=== PATIENT | female | born 1980 | race Caucasian/White ===

== ENCOUNTER 2024-12-24 13:01 | Emergency (ER) | payer OTHER, SELFPAY ==
--- OUTSIDE RECORDS SUMMARY | 2024-12-24 13:02 | XMS_ITS | Encounter Summary ---
Author Organization [place] Address [address] [facility] [place] [address] Care Team Providers Care Lathe Spotter Name Role Phone [facility] Primary Care Provider Christina Woodard APRN TIMING ADJUSTER Unavailable Reason for Visit * Reason Onset Date Comments MyChart Communication 01/21/2022 Encounter Details Date Type Department Care Team (Latest Contact Info) Description 01/21/2022 MyC Medical Advice [facility] [address] [facility] 100 [place] [address] Christina Woodard APRN TIMING ADJUSTER [address] [facility] [address] [place], [place] [id number] MyChart Communication Social History Tobacco Use Types Packs/Day Years Used Date Smoking Tobacco: Never Smokeless Tobacco: Never Alcohol Use Standard Drinks/Week Comments Yes 0 (1 standard drink = 0.6 oz pur e alcohol) Ocass PHQ-2 Answer Date Recorded PHQ-2 Score 0 07/18/2021 Comments No Sex and Gender Information Value Date Recorded Sex Assigned at Not on file Legal Sex Female 4:21 AM HOGSHEAD SALVAGE Gender Identity Not on file Sexual Orientation Not on file COVID-19 Exposure Response Date Recorded In the last month, have you been in contact with someone who was confirmed or suspected to have Coronavirus / COVID-19? No / Unsure 01/24/2022 8:00 AM HOGSHEAD SALVAGE documented as of this encounter Miscellaneous Notes * Telephone Encounter - Akiko Peña RN - 01/22/2022 11:28 AM HOGSHEAD SALVAGE Routing pt [employer] message to provider to advise. Fernando Peña RN on 01/22/2022 at 11:29 AM HEAD SALVAGE documented in this encounter Plan of Treatment Not on file documented as of this encounter Visit Diagnoses Not on filedocumented in this encounter Additional Health Concerns Assessment Noted Time PHQ-9 Depression Total Score: 0 07/18/20 21 2:19 PM CDT documented as of this encounter Care Teams Lathe Spotter Relationship Specialty Start Date End Date Clinic, [facility] [address] [facility] [address] [place] [address] PCP - General 09/03/17 Christina Woodard APRN TIMING ADJUSTER [address] [place] [address] Assigned OBGYN Provider 11/03/21 documented as of this encounter
--- OUTSIDE RECORDS SUMMARY | 2024-12-24 13:02 | XMS_ITS | Encounter Summary ---
Author Organization [place] Address [address] [facility] [place] [address] Care Team Providers Care Roof Bolting Coal Miner Name Role Phone [facility] Primary Care Provider Christina Woodard APRN DEPLOYMENT ENGINEER Unavailable Reason for Visit * Reason Onset Date Comments MyChart Communication 12/05/2021 Encounter Details Date Type Department Care Team (Latest Contact Info) Description 12/05/2021 MyC Medical Advice [facility] 65[address] [facility] 100 [place] [address] Christina Woodard APRN DEPLOYMENT ENGINEER 6525 [facility] 100 [place], [place] [address] MyChart Communication Social History Tobacco Use Types Packs/Day Years Used Date Smoking Tobacco: Never Smokeless Tobacco: Never Alcohol Use Standard Drinks/Week Comments Yes 0 (1 standard drink = 0.6 oz pur e alcohol) Ocass PHQ-2 Answer Date Recorded PHQ-2 Score 0 07/18/2021 Comments No Sex and Gender Information Value Date Recorded Sex Assigned at Not on file Legal Sex Female 4:21 AM INTERVENTIONAL RADIOLOGY RN Gender Identity Not on file Sexual Orientation Not on file COVID-19 Exposure Response Date Recorded In the last month, have you been in contact with someone who was confirmed or suspected to have Coronavirus / COVID-19? No / Unsure 11/28/2021 8:36 AM INTERVENTIONAL RADIOLOGY RN documented as of this encounter Plan of Treatment Not on file documented as of this encounter Visit Diagnoses Not on filedocumented in this encounter Additional Health Concerns Assessment Noted Time PHQ-9 Depression Total Score: 0 07/18/20 21 2:19 PM CDT documented as of this encounter Care Teams Roof Bolting Coal Miner Relationship Specialty Start Date End Date Clinic, [facility] [address] [facility] [address] [place] [phone] PCP - General 09/03/17 Christina Woodard APRN DEPLOYMENT ENGINEER [address] [place] [address] Assigned OBGYN Provider 11/03/21 documented as of this encounter
--- OUTSIDE RECORDS SUMMARY | 2024-12-24 13:02 | XMS_ITS | Encounter Summary ---
Author Organization [place] Address Formerly [facility], [id number] [place] [address] Care Team Providers Care Pen Maker Name Role Phone [facility] Primary Care Provider Subhash Ferrari MD Unavailable [phone] Christina Woodard APRN LIFE ENRICHMENT MANAGER Unavailable Reason for Visit * Reason Onset Date Comments MyChart Communication 09/18/2021 Encounter Details Date Type Department Care Team (Latest Contact Info) Description 09/18/2021 MyC Medical Advice [facility] [address] [place] [phone] Christina Woodard APRN LIFE ENRICHMENT MANAGER [address] [address] MyChart Communication Social History Tobacco Use Types Packs/Day Years Used Date Smoking Tobacco: Never Smokeless Tobacco: Never Alcohol Use Standard Drinks/Week Comments Yes 0 (1 standard drink = 0.6 oz pur e alcohol) Ocass PHQ-2 Answer Date Recorded PHQ-2 Score 0 07/18/2021 Comments No Sex and Gender Information Value Date Recorded Sex Assigned at Not on file Legal Sex Female 4:21 AM STRAW HAT WASHER OPERATOR Gender Identity Not on file Sexual Orientation Not on file documented as of this encounter Miscellaneous Notes * Telephone Encounter - Maria Del Carmen Rojas RN - 09/19/2021 6:42 AM CDT Routing pt [employer] message to provider to advise. Maria Del Carmen Rojas, RN on 09/19/2021 at 6:43 AM documented in this encounter Plan of Treatment Not on file documented as of this encounter Visit Diagnoses Not on filedocumented in this encounter Additional Health Concerns Assessment Noted Time PHQ-9 Depression Total Score: 0 07/18/20 21 2:19 PM CDT documented as of this encounter Care Teams Pen Maker Relationship Specialty Start Date End Date Clinic, [facility] [address] [facility] 100 [place] [address] PCP - General 09/03/17 [place] [address] [place] [address] Assigned OBGYN Provider 12/30/2011/02 Christina Woodard APRN LIFE ENRICHMENT MANAGER [facility] [facility] 100 [place] [address] Assigned OBGYN Provider 11/03/21 documented as of this encounter
--- OUTSIDE RECORDS SUMMARY | 2024-12-24 13:02 | XMS_ITS | Encounter Summary ---
Author Organization [place] Address Formerly [facility] [place] [address] Care Team Providers Care Cured Meats Supervisor Name Role Phone [facility] Primary Care Provider Subhash Ferrari MD Unavailable Christina Woodard APRN WASHING MACHINE MECHANIC Unavailable Encounter Details Date Type Department Care Team (Late st Contact Info) Description 07/19/2021 [facility] Medical Advice [facility] [place] 6525 [facility] 100 [place] [address] Christina Woodard APRN WASHING MACHINE MECHANIC 6525 [facility] 100 [place], [place] [address] Social History Tobacco Use Types Packs/Day Years Used Date Smoking Tobacco: Never Smokeless Tobacco: Never Alcohol Use Standard Drinks/Week Comments Yes 0 (1 standard drink = 0.6 oz pur e alcohol) Ocass PHQ-2 Answer Date Recorded PHQ-2 Score 0 07/18/2021 Comments No Sex and Gender Information Value Date Recorded Sex Assigned at Not on file Legal Sex Female 4:21 AM AXMINSTER RUG SETTER Gender Identity Not on file Sexual Orientation Not on file COVID-19 Exposure Response Date Recorded In the last month, have you been in contact with someone who was confirmed or suspected to have Coronavirus / COVID-19? No / Unsure 07/18/2021 2:03 PM CDT documented as of this encounter Plan of Treatment Not on file documented as of this encounter Visit Diagnoses Not on filedocumented in this encounter Additional Health Concerns Assessment Noted Time PHQ-9 Depression Total Score: 0 07/18/20 21 2:19 PM CDT documented as of this encounter Care Teams Cured Meats Supervisor Relationship Specialty Start Date End Date Clinic, [facility] [address] [facility] [address] [place] [phone] PCP - General 09/03/17 [place] [address] [place] [address] Assigned OBGYN Provider 12/30/2011/02 Christina Woodard APRN WASHING MACHINE MECHANIC [address] [facility] [address] [place] [address] Assigned OBGYN Provider 11/03/21 documented as of this encounter
--- OUTSIDE RECORDS SUMMARY | 2024-12-24 13:02 | XMS_ITS | Encounter Summary ---
Author Organization [place] Address [facility] [place] [address] Care Team Providers Care Sample Examiner Name Role Phone [facility] Primary Care Provider Subhash Ferrari MD Unavailable Christina Woodard APRN PRECISION LENS GENERATOR Unavailable [phone] Reason for Visit * Reason Onset Date Comments MyChart Communication 09/23/2021 Encounter Details Date Type Department Care Team (Latest Contact Info) Description 09/23/2021 MyC Medical Advice [facility] [address] [place] [phone] Chritsina Woodard APRN PRECISION LENS GENERATOR [address] [address] MyChart Communication Social History Tobacco [...] on file Legal Sex Female 4:21 AM EXECUTIVE CYBER LEADER Gender Identity Not on file Sexual Orientation Not on file documented as of this encounter Miscellaneous Notes * Telephone Encounter - Christina Rowe RN - 09/24/2021 8:17 AM CST 12/19/20 US - Impression: Resolution of right ovarian cyst, possible mild adenomyosis in the myometrium 03/26/21 US -no cyst mentioned 04/11/21 US-no cyst mentioned Routing pt mychart message to provider to advise. Christina Rowe RN on 09/24/2021 at 8:21 AM UTIVE CYBER LEADER documented in this encounter Plan of Treatment Not on file documented as of this encounter Visit Diagnoses Not on filedocumented in this encounter Additional Health Concerns Assessment Noted Time PHQ-9 Depression Total Score: 0 07/18/20 2:19 PM CDT documented as of this encounter Care Teams Sample Examiner Relationship Specialty Start Date End Date Clinic, [facility] [address] [facility] [address] [place] [address] PCP - General 09/03/17 [place] [address] [place] [address] Assigned OBGYN Provider 12/30/2011/02 Christina Woodard APRN PRECISION LENS GENERATOR [address] [facility] [address] [place] [address] Assigned OBGYN Provider 11/03/21 documented as of this encounter
--- OUTSIDE RECORDS SUMMARY | 2024-12-24 13:03 | XMS_ITS | Encounter Summary ---
Author Organization [place] Address [address] [place] [address] Care Team Providers Care Sales Solutions Associate Name Role Phone [facility] Primary Care Provider Subhash Ferrari MD Unavailable [phone] Christina Woodard APRN HAT AND CAP PARTS CUTTER HAND Unavailable [phone] Reason for Referral * Diagnostic Imaging Ultrasound (Routine) - Closed Specialty Diagnoses / Procedures Referred By Issa lazcano Referred To Contact Diagnoses Abnormal uterine bleeding Procedures US Transvaginal Non OB Christina Woodard APRN HAT AND CAP PARTS CUTTER HAND [address] [facility] 100 [place] [address] Phone: tel: fax: Referral ID Status Reason Start Date Expiration Date Visits Re quested Visits Authorized [id number] Closed 03/19/2021 03/19/2022 1 1 Reason for Visit * Reason Onset Date Comments MyChart Communication 03/17/2021 Encounter Details Date Type Department Care Team (Latest Contact Info) Description 03/17/2021 [facility] [place] 6[address] [facility] [address] [place] [phone] Christina Woodard APRN HAT AND CAP PARTS CUTTER HAND [address] [facility] 100 [place] [address] (work) [employer] Communication Social History Tobacco Use Types Packs/Day Years Used Date Smoking Tobacco: Never Smokeless Tobacco: Never Alcohol Use Standard Drinks/Week Comments Yes 0 (1 standard drink = 0.6 oz pur e alcohol) Ocass PHQ-2 Answer Date Recorded PHQ-2 Score 3 07/10/2020 Comments No Sex and Gender Information Value Date Recorded Sex Assigned at Not on file Legal Sex Female 4:21 AM CLAIMS SORTER Gender Identity Not on file Sexual Orientation Not on file documented as of this encounter Miscellaneous Notes * Telephone Encounter - Tricia Bain RN - 03/18/2021 10:25 AM CDT Per last OVwith on 12/24/20: 40-year-old with an essentially normal uterus with the exception of mild adenomyosis. We will have her monitor next 2 cycles and respond with either Provera or a D&C if she bleeds heavier. documented in this encounter Plan of Treatment Not on file documented as of this encounter Results * US Transvaginal Non OB (03/26/2021 1:00 PM CDT) Anatomical Region Laterality Modality Abdomen/Pelvis Ultrasound Narrative 03/26/2021 1:07 PM CDT US Transvaginal Non OB Order #: [id number] Study Notes Dana Arguelles on 03/26/2021 1:02 PM Gynecological Ultrasound Report Pelvic U/S - Transvaginal ealth [facility] Referring Provider: Dr. Subhash Ferrari Therapist Asst: Dana Arguelles RDMS Indication: Bleeding/Menses- Menorrhagia (heavy menses) LMP: About 2 weeks ago History: Gynecological Ultrasonography: Uterus: retroverted. Contour is smooth/regular. Size: 8.27 x 5.83 x 5.09 cm Endometrium: Thickness Total 14.43 mm Findings: No polyps or fibroids seen Right Ovary: 3.25 x 2.59 x 2.17 cm. Wnl Left Ovary: Absent Cul de Sac Free Fluid: No free fluid Impression: Thickened endometrium without polyps or fibroids FREDDIE Villalobos Discussed in office Christina Woodard APRN, CNP IM US ORDERABLES Fin al Result documented in this encounter Visit Diagnoses Diagnosis Abnormal uterine bleeding- Primary Unspecified disorder of menstruation and other abnormal bleeding from female genital tract Abnormal uterine bleeding Unspecified disorder of menstruation and other abnormal bleeding from female genital tract documented in this encounter Additional Health Concerns Assessment Noted Time PHQ-9 Depression Total Score: 16 020 7:59 AM CDT documented as of this encounter Care Teams Sales Solutions Associate Relationship Specialty Start Date End Date [facility] 6525 [facility] 100 [place] [address] PCP - General 09/03/17 [place] [address] [place] [address] Assigned OBGYN Provider 12/30/2011/02 Christina Woodard APRN HAT AND CAP PARTS CUTTER HAND [address] [facility] 100 [place] [address] Assigned OBGYN Provider 11/03/21 documented as of this encounter
--- OUTSIDE RECORDS SUMMARY | 2024-12-24 13:03 | XMS_ITS | Encounter Summary ---
Author Organization [place] Address [facility] [place] [address] Care Team Providers Care Bilingual Office Assistant Name Role Phone [facility] Primary Care Provider Subhash Ferrari MD Unavailable [phone] Subhash Ferrari MD Unavailable [phone] Sonja Hall APRN GENERAL OFFICE ASSOCIATE Unavailable Christina Woodard APRN GENERAL OFFICE ASSOCIATE Unavailable [phone] Reason for Visit * Reason Onset Date Comments Orders 02/11/2018 Encounter Details Date Type Department Care Team (Late st Contact Info) Description 02/11/2018 Telephone M [address] [phone] Masters, Meri Rand, [address] [place] [phone] Orders Social History Tobacco Use Types Packs/Day Years Used Date Smoking Tobacco: Never Smokeless Tobacco: Never Alcohol Use Standard Drinks/Week Comments Yes 0 (1 standard drink = 0.6 oz pur e alcohol) Comments No Sex and Gender Information Value Date Recorded Sex Assigned at Not on file Legal Sex Female 4:21 AM FACILITY MANAGER HISTOLOGY Gender Identity Not on file Sexual Orientation Not on file documented as of this encounter Miscellaneous Notes * Telephone Encounter - Naqvi - 02/11/2018 6:03 PM CDT Reason for Call: Request for an order or referral: Order or referral being requested: Mammogram Date needed: at your convenience Has the patient been seen by the PCP for this problem? NO Additional comments: Patient called to schedule her physical and also tried scheduling a mammogram.But because she is under 40, she would need an order before scheduling. Would you put in an order for her to get this done? Patient states Dr. Brady wanted her to have it done. Thank you. Phone number Patient can be reached at: Home number on file [phone] (home) Best Time: Anytime. Can we leave a detailed message on this number? YES Call taken on 02/11/2018 at 6:03 PM by Naqvi documented in this encounter Plan of Treatment Not on file documented as of this encounter Visit Diagnoses Not on filedocumented in this encounter Additional Health Concerns Assessment Noted Time PHQ-9 Depression Total Score: 3 03/14/20 17 7:09 AM CDT documented as of this encounter Care Teams Bilingual Office Assistant Relationship Specialty Start Date End Date Clinic, [facility] [address] [facility] [address] [place] [phone] PCP - General 09/03/17 [place] [address] [place] [address] Assigned OBGYN Provider 09/07/20 1 [place] [address] [place] [address] Assigned OBGYN Provider 12/30/2011/02 Sonja Hall APRN CNP [address] [facility] [address] [place] [id number] Assigned OBGYN Provider 12/23/20 Christina Woodard APRN GENERAL OFFICE ASSOCIATE [address] [place] [address] Assigned OBGYN Provider 11/03/21 documented as of this encounter
--- OUTSIDE RECORDS SUMMARY | 2024-12-24 13:03 | XMS_ITS | Encounter Summary ---
Author Organization [place] Address [address] [facility] [place] [address] Care Team Providers Care Instrumentation Controls Engineer Name Role Phone [facility] Primary Care Provider Christina Woodard APRN TREATING ENGINEER HELPER Unavailable [phone] Reason for Referral * Diagnostic Imaging Ultrasound (Routine) - Pending Review Specialty Diagnoses / Procedures Referred By Issa lazcano Referred To Contact Radiology. Diagnoses History of endometriosis Procedures US Transvaginal Pelvic Non-OB Christina Woodard APRN CNP [address] [facility] [address] [place] [address] Phone: tel: fax: Referral ID Status Reason Start Date Expiration Date V isits Requested Visits Authorized [id number] Pending Review 08/18/2024 08/18/2025 1 1 Reason for Visit * Reason Onset Date Comments MyChart Communication 08/18/2024 Encounter Details Date Type Department Care Team (Latest Contact Info) Description 08/18/2024 [place] [facility] Advice [facility] [place] 65[address] [facility] [address] [place] [phone] Christina Woodard APRN TREATING ENGINEER HELPER [address] [place] [address] [place] [phone] MyChart Communication Social History Tobacco Use Types Packs/Day Years Used Date Smoking Tobacco: Never Smokeless Tobacco: Never Alcohol Use Standard Drinks/Week Comments Not Currently 0 (1 standard drink = 0.6 oz pur e alcohol) Ocass AUDIT-C Answer Date Recorded Q1: How often do you have a drink containing alc ohol? Monthly or less 07/25/2022 Q2: How many drinks containi ng alcohol do you have on a typical day when you are drinking? 3 or 4 07/25/2022 Q3: How often do you have si x or more drinks on one occasion? Less than monthly 07/25/2022 PHQ-2 Answer Date Recorded PHQ-2 Score 1 02/11/2024 Adolescent Education Answer Date Record ed Getting School Help Needed Not on file 08/14 Comments No Sex and Gender Information Value Date Recorded Sex Assigned at Not on file Legal Sex Female 4:21 AM MECHANICAL ENGINEERING TECHNICIAN Gender Identity Not on file Sexual Orientation Not on file documented as of this encounter Miscellaneous Notes * Telephone Encounter - Adri Chu - 08/18/2024 3:01 PM CDT LMTCB * Telephone Encounter - Christina Woodard APRN CNP - 08/18/2024 2:47 PM CDT US order placed. I was unaware that her next visit was an annual. Have her do US any day before 08/29 * Telephone Encounter - Christina Rowe RN - 08/18/2024 2:07 PM CDT 1340 US on that day - her 08/29 is a preventative annual visit No orders in Do you want the US same day (unsure as it's an annual)? Christina Rowe RN on 08/18/2024 at 2:14 PM * Telephone Encounter - Christina Woodard APRN CNP - 08/18/2024 2:02 PM CDT Can we find an US spot for her on 08/29? * Telephone Encounter - Akiko Peña RN - 08/18/2024 1:56 PM CDT Pt update Routing pt [employer] message to provider to advise. Fernando Peña RN on 08/18/2024 at 1:56 PM WE OBGYN' * Telephone Encounter - Akiko Peña RN - 08/18/2024 8:44 AM CDT Pt giving updates with clots with periods. Now on oral iron due to low ferritin-11 Pictures included in mychart Will recommend US and visit, review ER precautions Anything else to add? Routing pt [employer] message to provider to advise. Fernando Peña RN on 08/18/2024 at 8:46 AM WE OBGYN documented in this encounter Plan of Treatment Not on file documented as of this encounter Results * US Transvaginal Pelvic Non-OB (08/29/2024 1:56 PM CDT) Anatomical Region Laterality Modality Abdomen/Pelvis Ultrasound Narrative 08/29/2024 2:05 PM CDT Table formatting from the original result was not included. US Transvaginal Pelvic Non-OB Order #: [id number] Study Notes Sari Ya on 08/29/2024 1:58 PM Gynecological Ultrasound Report Pelvic U/S - Transvaginal ealth [facility] Referring Provider: Christina Woodard CNP Working Manager: Sari Ya RDMS Indication: Endometriosis LMP: No LMP recorded. History: Gynecological Ultrasonography: Uterus: anteverted. Contour is irregular w/ myomata: 1 Fundal Subserosal 1.6 x 1.1 x 1.9 cm. Size: 9.8 x 6.7 x 5.6 cm Endometrium: Thickness Total 9.5 mm Findings: Right Ovary: 3.4 x 2.3 x 2.7 cm. Wnl Left Ovary: Absent Cul de Sac Free Fluid: No free fluid Technique: Transvaginal Imaging performed Impression: Anteverted uterus Fundal subserosal fibroid measuring 1.6 x 1.1 x 1.9cm Normal appearing endometrium Right ovary is normal Left ovary is surgically absent. Mandy Napoles MD us Christina Woodard APRN, CNP IMG US ORDERABLES Fin al Result documented in this encounter Visit Diagnoses Diagnosis History of endometriosis- Primary Personal history of other genital system and obstetric disorders History of endometriosis Personal history of other genital system and obstetric disorders documented in this encounter Additional Health Concerns Assessment Noted Time PHQ-9 Depression Total Score: 0 11/06/20 23 11:30 AM MECHANICAL ENGINEERING TECHNICIAN documented as of this encounter Care Teams Instrumentation Controls Engineer Relationship Specialty Start Date End Date [facility], [facility] [address] [facility] [address] [place] [phone] PCP - General 09/03/17 Christina Woodard APRN TREATING ENGINEER HELPER [address] [facility] [address] [place] [address] Assigned OBGYN Provider 11/03/21 documented as of this encounter
--- OUTSIDE RECORDS SUMMARY | 2024-12-24 13:03 | XMS_ITS | Encounter Summary ---
Author Organization [place] Address [facility] [place] [address] Care Team Providers Care Hazardous Material Technician Name Role Phone [facility] Primary Care Provider Subhash Ferrari MD Unavailable [phone] Christina Woodard APRN [facility] Unavailable [phone] Reason for Visit * Reason Onset Date Comments MyChart Communication 03/10/2021 Encounter Details Date Type Department Care Team (Latest Contact Info) Description 03/10/2021 MyC Medical Advice M [address] [address] [place] [address] [place] [address] MyChart Communication Social History Tobacco Use Types Packs/Day Years Used Date Smoking Tobacco: Never Smokeless Tobacco: Never Alcohol Use Standard Drinks/Week Comments Yes 0 (1 standard drink = 0.6 oz pur e alcohol) [place] PHQ-2 Answer Date Recorded PHQ-2 Score 3 07/10/2020 Comments No Sex and Gender Information Value Date Recorded Sex Assigned at Not on file Legal Sex Female 4:21 AM CREDIT COLLECTIONS CLERK Gender Identity Not on file Sexual Orientation Not on file documented as of this encounter Plan of Treatment Not on file documented as of this encounter Visit Diagnoses Not on filedocumented in this encounter Additional Health Concerns Assessment Noted Time PHQ-9 Depression Total Score: 16 020 7:59 AM CDT documented as of this encounter Care Teams Hazardous Material Technician Relationship Specialty Start Date End Date Clinic, [facility] [address] [facility] [address] [place] [phone] PCP - General 09/03/17 [place] [address] [place] [address] Assigned OBGYN Provider 12/30/2011/02 Christina Woodard APRN TURFGRASS MANAGEMENT PROFESSOR [address] [place] [address] [place] [address] Assigned OBGYN Provider 11/03/21 documented as of this encounter
--- OUTSIDE RECORDS SUMMARY | 2024-12-24 13:03 | XMS_ITS | Encounter Summary ---
Author Organization [place] Address [address] [facility] [place] [address] Care Team Providers Care Study Manager Name Role Phone [facility] Primary Care Provider Christina Woodard APRN RELATIONS SPECIALIST Unavailable Reason for Visit * Reason Onset Date Comments MyChart Communication 08/14/2022 Encounter Details Date Type Department Care Team (Latest Contact Info) Description 08/14/2022 MyC Medical Advice [facility] [address] [facility] 100 [place] [address] Christina Woodard APRN RELATIONS SPECIALIST [address] [facility] 100 [place], [place] [id number] MyChart Communication Social History Tobacco Use Types [...] 07/25/2022 PHQ-2 Answer Date Recorded PHQ-2 Score 0 07/25/2022 Comments No Sex and Gender Information Value Date Recorded Sex Assigned at Not on file 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 No / Unsure 08/11/2022 11:29 AM CDT documented as of this encounter Miscellaneous Notes * Telephone Encounter - Akiko Peña, ABEL - 08/15/2022 10:57 AM CDT Routing pt Rotation Medical message to provider to advise. Follow-up questions regarding cysts seen on US Fernando Peña RN on 08/15/2022 at 10:58 AM documented in this encounter Plan of Treatment Not on file documented as of this encounter Visit Diagnoses Not on filedocumented in this encounter Additional Health Concerns Assessment Noted Time PHQ-9 Depression Total Score: 2 07/25/20 22 1:45 PM CDT documented as of this encounter Care Teams Study Manager Relationship Specialty Start Date End Date [facility] [address] [facility] [address] [place] [phone] PCP - General 09/03/17 Christina Woodard APRN RELATIONS SPECIALIST [address] [place] [address] Assigned OBGYN Provider 11/03/21 documented as of this encounter
--- OUTSIDE RECORDS SUMMARY | 2024-12-24 13:03 | XMS_ITS | Encounter Summary ---
Author Organization [place] Address On license of [facility] [place] [address] Care Team Providers Care Application Operations Engineer Name Role Phone [facility] Primary Care Provider Subhash Ferrari MD Unavailable [phone] uSbhash Ferrari MD Unavailable [phone] Sonja Hall WAX BALL KNOCK OUT WORKER MANAGER CUSTOM Unavailable Christina Woodard APRN MANAGER CUSTOM Unavailable [phone] Encounter Details Date Type Department Care Team (Late st Contact Info) Description 08/14/2020 [facility]ene [place] [address] [phone] Christina Rowe RN Social History Tobacco Use Types Packs/Day Years Used Date Smoking Tobacco: Never Smokeless Tobacco: Never Alcohol Use Standard Drinks/Week Comments Yes 0 (1 standard drink = 0.6 oz pur e alcohol) PHQ-2 Answer Date Recorded PHQ-2 Score 3 07/10/2020 Comments No Sex and Gender Information Value Date Recorded Sex Assigned at Not on file 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 No / Unsure 08/06/2020 2:36 PM CDT documented as of this encounter Plan of Treatment Not on file documented as of this encounter Visit Diagnoses Not on filedocumented in this encounter Additional Health Concerns Assessment Noted Time PHQ-9 Depression Total Score: 16 020 7:59 AM CDT documented as of this encounter Care Teams Application Operations Engineer Relationship Specialty Start Date End Date Clinic, [facility] Women [place] [address] [place] [phone] PCP - General 09/03/17 [place] [address] [place] [address] Assigned OBGYN Provider 09/07/20 1 [place] [address] [place] [address] Assigned OBGYN Provider 12/30/2011/02 Sonja Hall APRN MANAGER CUSTOM [address] [place] [address] Assigned OBGYN Provider 12/23/20 Christina Wodoard APRN MANAGER CUSTOM [address] [place] [address] Assigned OBGYN Provider 11/03/21 documented as of this encounter
--- OUTSIDE RECORDS SUMMARY | 2024-12-24 13:03 | XMS_ITS | Encounter Summary ---
Author Organization [place] Address [facility] [place] [address] Care Team Providers Care Tire Recapper Name Role Phone [facility] Primary Care Provider Subhash Ferrari MD Unavailable [phone] Subhash Ferrari MD Unavailable [phone] Sonja Hall APRN DIGITAL PROJECT MANAGER Unavailable Christina Woodard APRN DIGITAL PROJECT MANAGER Unavailable Reason for Visit * Reason Onset Date Comments MyChart Communication 11/02/2020 Encounter Details Date Type Department Care Team (Latest Contact Info) Description 11/02/2020 [facility] Rene [facility] Women [place] [address] [phone] Christina Woodard APRN DIGITAL PROJECT MANAGER [address] [facility] 100 [place] [address] MyChart Communication Social History Tobacco Use Types Packs/Day Years Used Date Smoking Tobacco: Never Smokeless Tobacco: Never Alcohol Use Standard Drinks/Week Comments Yes 0 (1 standard drink = 0.6 oz pur e alcohol) PHQ-2 Answer Date Recorded PHQ-2 Score 3 07/10/2020 Comments No Sex and Gender Information Value Date Recorded Sex Assigned at Not on file Legal Sex Female 4:21 AM PAPER SORTER Gender Identity Not on file Sexual Orientation Not on file documented as of this encounter Miscellaneous Notes * Telephone Encounter - Christina Woodard APRN CNP - 11/29/2020 12:24 PM PAPER SORTER Iron is okay for now. Recheck ferritin this summer again R SORTER * Telephone Encounter - Tricia Bain RN - 11/28/2020 8:41 AM CST Component Latest Ref Rng & Units 09/19/2020 Ferritin 12 - 150 ng/mL 78 R SORTER documented in this encounter Plan of Treatment Not on file documented as of this encounter Visit Diagnoses Not on filedocumented in this encounter Additional Health Concerns Assessment Noted Time PHQ-9 Depression Total Score: 16 020 7:59 AM CDT documented as of this encounter Care Teams Tire Recapper Relationship Specialty Start Date End Date Clinic, [facility] [address] [place] [address] PCP - General 09/03/17 [place] [address] [place] [address] Assigned OBGYN Provider 09/07/20 1 [place] [address] [place] [address] Assigned OBGYN Provider 12/30/2011/02 Sonja Hall APRN DIGITAL PROJECT MANAGER [address] [place] [address] Assigned OBGYN Provider 12/23/20 Christina Woodard APRN DIGITAL PROJECT MANAGER [address] [facility] [address] [place] [address] Assigned OBGYN Provider 11/03/21 documented as of this encounter
--- OUTSIDE RECORDS SUMMARY | 2024-12-24 13:03 | XMS_ITS | Encounter Summary ---
Author Organization [place] Address [address] [facility] [place] [address] Care Team Providers Care Chief Dog License Inspector Name Role Phone [facility] [place] Primary Care Provider Christina Woodard APRN SEAFOOD AND SERVICE MEAT MANAGER Unavailable [phone] Reason for Visit * Reason Onset Date Comments MyChart Communication 03/19/2023 Encounter Details Date Type Department Care Team (Latest Contact Info) Description 03/19/2023 MyC Medical Advice [facility] [address] [facility] 100 [place] [address] Christina Woodard APRN SEAFOOD AND SERVICE MEAT MANAGER [address] [facility] 100 [place], [place] [phone] MyChart Communication Social History Tobacco Use Types [...] PHQ-2 Answer Date Recorded PHQ-2 Score 0 03/03/2023 Comments No Sex and Gender Information Value Date Recorded Sex Assigned at Not on file 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 No / Unsure 03/03/2023 11:24 AM CDT documented as of this encounter Plan of Treatment Not on file documented as of this encounter Visit Diagnoses Not on filedocumented in this encounter Additional Health Concerns Assessment Noted Time PHQ-9 Depression Total Score: 2 03/03/20 23 3:28 PM CDT documented as of this encounter Care Teams Chief Dog License Inspector Relationship Specialty Start Date End Date Clinic, [facility] Women [facility] [address] [facility] [address] [place], [place] [phone] PCP - General 09/03/17 Christina Woodard APRN SEAFOOD AND SERVICE MEAT MANAGER [address] [facility] [address] [place] [address] Assigned OBGYN Provider 11/03/21 documented as of this encounter
--- OUTSIDE RECORDS SUMMARY | 2024-12-24 13:03 | XMS_ITS | Clinical Summary ---
Author Organization [place] Address [address] [facility] [place] [address] Care Team Providers Care Folder Seamer Name Role Phone [facility] Primary Care Provider Christina Woodard APRN ARTILLERY OR [employer] OBSERVER Unavailable Allergies No known active allergies Medications ferrous sulfate (FE TABS) 325 (65 Fe) MG EC tablet TAKE 1 TABLET BY MOUTH ONCE DAILY WITH A MEAL Active methylPREDNISo lone (MEDROL DOSEPAK) 4 MG tablet therapy pack Take by mouth as instructed per packaging. 08/19/20 24 Active triamcinolone (KENALOG) 0.1 % external cream APPLY TOPICALLY TO AFFECTED AREAS 2 TIMES DAILY FOR UP TO 2 WEEKS FOR RASH Active FLUoxetine (PROZAC) 20 MG capsuleIndicat ions:Anxiety TAKE ONE CAPSULE BY MOUTH EVERY DAY 90 capsule 3 11/21/19 25 Active norethindrone- ethinyl estradiol (MICROGESTIN 12/05) 1-20 MG-MCG tabletIndicati ons:Endometrio sis Take 1 tablet by mouth daily. 56 tablet 12/20/19 25 Active norethindrone- ethinyl estradiol (MICROGESTIN 12/05) 1-20 MG-MCG tabletIndicati ons:Endometrio sis Take 1 tablet by mouth daily. 28 tablet 12/20/19 25 025 Discontinued Active Problems Problem Noted Date Diagnosed Date Anemia 07/12/2020 Complex cyst of right ovary 05/01/2020 Overview (05/01/2020): Added automatically from request for surgery [id number] Morbid obesity 04/30/2020 Obesity (BMI 30-39.9) 08/14/2015 High blood pressure 03/18/2015 Feeling faint 07/08/2012 Cervical dysplasia 11/16/2007 Overview (09/02/2024): 05/20/08 LSIL 2007 colpo-ALVIN 1 06/20/09 ASCUS/+ HPV 07/09/09 Colpo-ALVIN 1 cryo eventually done in 07/2506/14/10 NIL 05/05/11 LSIL 06/06/11 Colpo- atypia 05/21/12 NIL 07/20/13 NIL/Neg HPV 05/23/14 NIL/Neg HPV 12/27/15 NIL/Neg HPV 03/13/17 NIL pap 02/22/18 NIL pap 04/19/19 NIL pap 07/10/20 NIL/Neg HPV. 07/18/21 NIL/Neg HPV. Routine screening 07/24/22 NIL/neg HR HPV. Patient qualifies for routine screening. Pt prefers annual screening per visit notes 11/06/23 NIL pap, neg HR HPV. Plan repeat in 1 year per patient preference 08/29/24 NIL pap, neg HPV OCD (obsessive compulsive disorder) Anxiety Resolved Problems Problem Noted Date Diagnosed Date Resolved Date Labor and delivery, indication for care 03/21/2015 07/10/2020 Indication for care in labor and delivery, antepartum 02/21/2015 07/10/2020 Indication for care in labor or delivery 01/04/2015 07/10/2020 Encounters Date Type Department Care Team Description 12/19/2024 MyC Medical Advice [facility] for [address] [phone] Christina Woodard APRN CNP MyChart Communication 11/19/2024 Refill [facility] for [address] [phone] Christina Woodard APRN CNP Medication Refill from Last 3 Months Immunizations Name Administration Dates Next Due Hepatitis B, Adult 06/30/2002,08/02/2001 Hepatitis B, Peds 06/29/2001 MMR 07/01/1995 Rabies Vaccine 07/02/2001,06/25/2001 TDAP (Adacel,Boostrix) 01/12/2015 Family History Medical History Relation Comments Colon Polyps Father Diabetes Maternal Grandfather Hyperlipidemia Maternal Grandfather Breast Cancer Maternal Grandmother Colon Cancer Maternal Grandmother Pancreatic too Thyroid Disease Maternal Grandmother Colon Polyps Mother Blood Disease Other 1 hemachromatosis Breast Cancer Other 2 Cervical Cancer Paternal Aunt Tumor Paternal Cousin in uterus (age 4 1) Colon Cancer Paternal Uncle Relation Status Comments Father Maternal Grandfather Maternal Grandmother Mother Other 1 Other 2 Alive Paternal Aunt Paternal Cousin Alive Paternal Uncle Alive Social History Tobacco Use Types Packs/Day Years Used Date Smoking Tobacco: Never Smokeless Tobacco: Never Tobacco Cessation:Counseling Given: Not Answered Alcohol Use Standard Drinks/Week Comments Not Currently [...] on file Legal Sex Female 4:21 AM WAITER/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 COUNTER Gender Identity Not on file Sexual Orientation Not on file Last Filed Vital Signs Vital Sign Reading Time Taken Comments Blood Pressure 122/68 08/29/2024 2:22 PM CDT Pulse 84 12/18/2020 1:46 PM WAITER/WAITRESS COUNTER Temperature 36.9 C (98.4 F) 08/06/2020 2:48 PM CDT Respiratory Rate 18 08/06/2020 2:48 PM CDT Oxygen Saturation 98% 08/06/2020 2:48 PM CDT Inhaled Oxygen Concentration - - Weight 114.8 kg (253 lb) 08/29/2024 2:22 PM CDT Height 168.9 cm (5' 6.5) 08/29/2024 2:22 PM CDT Body Mass Index 40.22 08/29/2024 2:22 PM CDT Plan of Treatment Health Maintenance Due Date Last Done Comments ADVANCE CARE PLANNING 1982 ANNUAL REVIEW OF HM ORDERS 1982 COVID-19 Vaccine ( season) 2024 INFLUENZA VACCINE (#1) 2024 BMP 11/06/2024 11/06/2023, 06/17, 03/21/2015, Additional history exists PHQ-2 (once per calendar year) 2024 02/11/2024, 11/06/2023, 11/06/2023, Additional history exists DTAP/TDAP/TD IMMUNIZATION (2 - Td or Tdap) 01/12/2025 01/12/2015 HPV TEST 08/29/2025 08/29/2024, 10/17, 07/25/2022, Additional history exists PAP 08/29/2025 08/29/2024, 08/16, 11/06/2023, Additional history exists YEARLY PREVENTIVE VISIT 08/29/2025 08/29/20 24, 11/06/2023, 07/25/2022, Additional history exists MAMMO SCREENING 08/01/2026 08/01/2024, 03/16, 08/11/2022, Additional history exists GLUCOSE 02/10/2027 02/11/2024, 10/17, 10/22/2022, Additional history exists LIPID 11/06/2028 11/06/2023, 12/05/2022, 07/10/2020, Additional history exists ZOSTER IMMUNIZATION (1 of 2) 2032 HEPATITIS B IMMUNIZATION Completed 002, 08/02/2001, 06/29/2001 HEPATITIS C SCREENING Completed 08/11/2022, 017 HIV SCREENING Completed 08/29/2024, 01/15, 08/11/2022, Additional history exists HPV IMMUNIZATION Aged Out No longer e ligible based on patient's age to complete this topic MENINGITIS IMMUNIZATION Aged Out No l onger eligible based on patient's age to complete this topic Pneumococcal Vaccine: Pediatrics (0 to 5 Years) and At-Risk Patients (6 to 49 Years) Aged Out No longer eligible based on patient's age to complete this topic Procedures Procedure Name Priority Date/Time Associated Diagnosis Comments HIV ANTIGEN ANTIBODY COMBO Routine 08/29/2024 2:56 PM CDT Screen for STD (sexually transmitted disease) HPV AND GYNECOLOGIC CYTOLOGY PANEL Routine 08/29/2024 2:55 PM CDT Encounter for screening for cervical cancer MA SCREENING BILATERAL W/ RONI Routine 08/01/2024 11:49 AM CDT Visit for screening mammogram GLUCOSE Add-On 02/11/2024 11:23 AM CDT Hyperglycemia LIPID PROFILE Routine 11/06/2023 11:50 AM WAITER/WAITRESS COUNTER Encounter for lipid screening for cardiovascular disease COMPREHENSIVE METABOLIC PANEL Routine 11/06/2023 11:50 AM WAITER/WAITRESS COUNTER Screening for metabolic disorder HEPATITIS C ANTIBODY Routine 08/11/2022 12:58 PM CDT Screening examination for venereal disease from Last 3 Months or Most Recently Relevant to Health Maintenance Results * HIV Antigen Antibody Combo [place] (08/29/2024 2:56 PM CDT) Pathologist [facility] HIV Antigen Antibody Combo Nonreactive Nonreactive 08/30/2024 1:39 PM CDT [facility] Comment:Negative HIV-1 p24 a ntigen and HIV-1/2 antibody screening test results usually indicate the absence of HIV-1 and HIV-2 infection. However, such negative results do not rule-out acute HIV infection. If acute HIV-1 or HIV-2 infection is suspected, detection of HIV-1 or HIV-2 RNA is recommended. This result is obtained using the [employer] HIV Duo method on the inocencia [id number] immunoassay analyzer. Blood STRUCTURE OF LEFT UPPER LIMB / Unknown Venipuncture / Unknown 08/29/2024 2:56 PM CDT 08/29/2024 3:00 PM CDT us Christinaherlinda Woodard APRN ARTILLERY OR [employer] OBSERVER LAB - BLOOD ORDERABLE S Final Result [facility] [place] [facility] [address] [facility] [address], [address] [place] [phone], [facility] * HPV and Gynecologic Cytology Panel ??? Recommended Age 30-65 Years (08/29/2024 2:55 PM CDT) Human Papilloma Virus 16 DNA Negative Negative 08/30/2024 1:53 PM CDT [facility] Human Papilloma Virus 18 DNA Negative Negative 08/30/2024 1:53 PM CDT [facility] Human Papilloma Virus Other Negative Negative 08/30/2024 1:53 PM CDT [facility] FINAL DIAGNOSIS This patient's sample is negative for high risk HPV DNA. METHODOLOGY: The [employer] system uses automated extraction, simultaneous amplification of HPV (E6/E7 oncogenes) and beta-globin, followed by real time detection of fluorescent labeled HPV and beta globin using specific oligonucleotide probes. The test specifically identifies types HPV 16 DNA and HPV 18 DNA while concurrently detecting the rest of the high risk types (31, 33, 35, 39, 45, 51, 52, 56, 58, 59, 66 or 68). COMMENTS: This test is not intended for use as a screening device for woman under age 30 with normal cervical cytology. Results should be correlated with cytologic and histologic findings. Close clinical follow up is recommended. Please see the separate Gynecologic Cytology (Pap) report from the same collection date. 08/30/2024 1:53 PM CDT MOLECULAR DIAGNOSTICS Brushing ENDOCERVICAL STRUCTURE / Unknown Non-blood Collection / Unknown 08/29/2024 2:55 PM CDT 08/29/2024 3:02 PM CDT Christina Woodard APRN ARTILLERY OR [employer] OBSERVER LAB - BLOOD ORDERABLE S Final Result [facility] [address] [facility] [address], [address] [phone], [facility] MOLECULAR DIAGNOSTICS Molecular Diagnostics [address] [facility] [address], [address] [phone], [facility] * MA Screen Bilateral w/Roni (08/01/2024 11:49 AM CDT) Anatomical Region Laterality Modality Breast Bilateral Mammography Impressions 08/02/2024 11:38 AM CDT IMPRESSION: ACR BI-RADS Category 1: Negative BREAST CANCER SCREENING RECOMMENDATION: Routine yearly mammography beginning at age 40 or as discussed with your provider. The results and recommendations of this examination will be communicated to the patient. Perry Duran MD Narrative 08/02/2024 11:38 AM CDT BILATERAL FULL FIELD DIGITAL SCREENING MAMMOGRAM WITH TOMOSYNTHESIS Performed on: 08/01/24 Compared to: 03/30/2023 and 02/22/2018 Technique: This study was evaluated with the assistance of Computer-Aided Detection. Breast Tomosynthesis was used in interpretation. Findings: There are scattered areas of fibroglandular density. There is no radiographic evidence of malignancy. Christina Woodard APRN, CNP IMG MAMMOGRAPHY ORDER ONEYDA Final Result * Glucose (02/11/2024 11:23 AM CDT) Glucose 99 70 - 99 mg/dL 02/12/2024 4:08 PM CDT [facility] Blood STRUCTURE OF LEFT UPPER LIMB / Unknown Venipuncture / Unknown 02/11/2024 11:23 AM CDT 02/11/2024 11:26 AM CDT Christina Woodard APRN, CNP LAB - BLOOD ORDERABLE S Final Result [facility] [address] [facility], [address] [place] [address], [facility] * (ABNORMAL) Lipid Profile (11/06/2023 11:50 AM WAITER/WAITRESS COUNTER) Cholesterol 176 <200 mg/dL 11/06/2023 10:30 PM WAITER/WAITRESS COUNTER [facility] Triglycerides 206(H) <150 mg/dL 11/06/2023 10:30 PM WAITER/WAITRESS COUNTER [facility] Direct Measure HDL 39(L) >=50 mg/dL 11/06/2023 10:30 PM WAITER/WAITRESS COUNTER [facility] LDL Cholesterol Calculated 96 <=100 mg/dL 11/06/2023 10:30 PM WAITER/WAITRESS COUNTER [facility] Non HDL Cholesterol 137(H) <130 mg/dL 11/06/2023 10:30 PM WAITER/WAITRESS COUNTER [facility] Patient Fasting > 8hrs? Yes 11/06/2023 10:30 PM WAITER/WAITRESS COUNTER [facility] Blood STRUCTURE OF LEFT UPPER LIMB / Unknown Venipuncture / Unknown 11/06/2023 11:50 AM WAITER/WAITRESS COUNTER 11/06/2023 11:53 AM WAITER/WAITRESS COUNTER Narrative [facility] - 11/06/2023 10:30 PM WAITER/WAITRESS COUNTER Cholesterol Desirable: <200 mg/dL Triglycerides Normal: Less than 150 mg/dL Borderline High: 150-199 mg/dL High: 200-499 mg/dL Very High: Greater than or equal to 500 mg/dL Direct Measure HDL Female: Greater than or equal to 50 mg/dL Male: Greater than or equal to 40 mg/dL LDL Cholesterol Desirable: <100mg/dL Above Desirable: 100-129 mg/dL Borderline High: 130-159 mg/dL High: 160-189 mg/dL Very High: >= 190 mg/dL Non HDL Cholesterol Desirable: 130 mg/dL Above Desirable: 130-159 mg/dL Borderline High: 160-189 mg/dL High: 190-219 mg/dL Very High: Greater than or equal to 220 mg/dL us Christina Woodard SENIOR PEOPLESOFT DEVELOPER ARTILLERY OR NAVAL [employer] OBSERVER LAB - BLOOD ORDERABLE S Final Result [facility] [address] [facility], [address] [place] [address], [facility] [phone] * (ABNORMAL) Comprehensive metabolic panel (11/06/2023 11:50 AM WAITER/WAITRESS COUNTER) [facility] Signature Sodium 139 135 - 145 mmol/L 11/06/2023 10:30 PM WAITER/WAITRESS COUNTER [facility] Comment:Reference intervals for this test were updated on 08/11/2023 to more accurately reflect our healthy population. There may be differences in the flagging of prior results with similar values performed with this method. Interpretation of those prior results can be made in the context of the updated reference intervals. Potassium 4.1 3.4 - 5.3 mmol/L 11/06/2023 10:30 PM WAITER/WAITRESS COUNTER [facility] Carbon Dioxide (CO2) 21(L) 22 - 29 mmol/L 11/06/2023 10:30 PM WAITER/WAITRESS COUNTER [facility] Anion Gap 13 7 - 15 mmol/L 11/06/2023 10:30 PM WAITER/WAITRESS COUNTER [facility] Urea Nitrogen 9.5 6.0 - 20.0 mg/dL 11/06/2023 10:30 PM WAITER/WAITRESS COUNTER [facility] Creatinine 0.85 0.51 - 0.95 mg/dL 11/06/2023 10:30 PM WAITER/WAITRESS COUNTER [facility] GFR Estimate 88 >60 mL/min/1. 73m2 11/06/2023 10:30 PM WAITER/WAITRESS COUNTER [facility] Calcium 9.4 8.6 - 10.0 mg/dL 11/06/2023 10:30 PM WAITER/WAITRESS COUNTER [facility] Chloride 105 98 - 107 mmol/L 11/06/2023 10:30 PM WAITER/WAITRESS COUNTER [facility] Glucose 95 70 - 99 mg/dL 11/06/2023 10:30 PM WAITER/WAITRESS COUNTER [facility] Alkaline Phosphatase 67 40 - 150 U/L 11/06/2023 10:30 PM WAITER/WAITRESS COUNTER [facility] Comment:Reference intervals for this test were updated on 09/29/2023 to more accurately reflect our healthy population. There may be differences in the flagging of prior results with similar values performed with this method. Interpretation of those prior results can be made in the context of the updated reference intervals. AST 21 0 - 45 U/L 11/06/2023 10:30 PM WAITER/WAITRESS COUNTER [facility] Comment:Reference intervals for this test were updated on 04/27/2023 to more accurately reflect our healthy population. There may be differences in the flagging of prior results with similar values performed with this method. Interpretation of those prior results can be made in the context of the updated reference intervals. ALT 15 0 - 50 U/L 11/06/2023 10:30 PM WAITER/WAITRESS COUNTER [facility] Comment:Reference intervals for this test were updated on 04/27/2023 to more accurately reflect our healthy population. There may be differences in the flagging of prior results with similar values performed with this method. Interpretation of those prior results can be made in the context of the updated reference intervals. Protein Total 7.1 6.4 - 8.3 g/dL 11/06/2023 10:30 PM WAITER/WAITRESS COUNTER [facility] Albumin 4.4 3.5 - 5.2 g/dL 11/06/2023 10:30 PM WAITER/WAITRESS COUNTER [facility] Bilirubin Total 0.9 <=1.2 mg/dL 11/06/2023 10:30 PM WAITER/WAITRESS COUNTER [facility] Blood STRUCTURE OF LEFT UPPER LIMB / Unknown Venipuncture / Unknown 11/06/2023 11:50 AM WAITER/WAITRESS COUNTER 11/06/2023 11:53 AM WAITER/WAITRESS COUNTER us Christina Dana Woodard SENIOR PEOPLESOFT DEVELOPER ARTILLERY OR NAVAL GUNFIRE OBSERVER LAB - BLOOD ORDERABLE S Final Result [facility] [address] [facility], [address] [address], [facility] [phone] * Hepatitis C antibody (08/11/2022 12:58 PM CDT) Hepatitis C Antibody Nonreactive Nonreactive 08/12/2022 1:41 PM CDT [facility] DO Blood STRUCTURE OF LEFT UPPER LIMB / Unknown Venipuncture / Unknown 08/11/2022 12:58 PM CDT 08/11/2022 1:05 PM CDT Narrative [facility] - 08/12/2022 1:41 PM CDT Assay performance characteristics have not been established for newborns, infants, and children. us Sonja Hall APRN ARTILLERY OR NAVAL GUNFIRE OBSERVER LAB - BLOOD ORDE OMI Final Result [facility] Specialty Core/Prot/Endo [address] [facility] [address], [address] [place] [address], [facility] [phone] from Last 3 Months or Most Recently Relevant to Health Maintenance Insurance [employer] [facility] [employer] Care Teams Folder Seamer Relationship Specialty Start Date End Date [facility], [facility] [address] [facility] [address] [place] [phone] PCP - General 09/03/17 Christina Woodard APRN ARTILLERY OR NAVAL GUNFIRE OBSERVER [address] [place] [address] Assigned OBGYN Provider 11/03/21
--- OUTSIDE RECORDS SUMMARY | 2024-12-24 13:03 | XMS_ITS | Clinical Summary ---
Author Organization [facility] Address [place], [place] [address] Care Team Providers Care Instructor Dramatic Arts Name Role Phone Khadar Yañez Unavailable + [phone] Pcp, No Primary Care Provider Unavailabl e Allergies No known active allergies Medications FLUoxetine (PROZAC) 20 mg capsule Take 20 mg by mouth once daily. 12/30/19 23 Active ferrous sulfate 325 mg delayed release tabletIndication s:Menorrhagia with regular cycle,Low ferritin Take 1 Tablet (325 mg) by mouth once daily with a meal. 90 Tablet 3 08/18/20 24 Active benzonatate (TESSALON) 100 mg capsuleIndicatio ns:Acute cough Take 1 Capsule (100 mg) by mouth 3 times daily if needed for Cough. 21 Capsule 12/01/19 25 Active albuterol HFA (PRO-AIR; VENTOLIN; PROVENTIL) 90 mcg/actuation inhalerIndicatio ns:Exercise-nupur edison asthma,Acute cough Inhale 1-2 Puffs by mouth every 4 hours if needed for Shortness Of Breath or Wheezing. 1 Each 1 12/01/19 25 Active inhalational spacing deviceIndication s:Exercise-induc ed asthma,Acute cough For home use. 1 Each 12/01/19 25 Active meclizine (ANTIVERT) 25 mg tabletIndication s:BPPV (benign paroxysmal positional vertigo), left Take 1 Tablet (25 mg) by mouth 3 times daily if needed for Vertigo. 30 Tablet 12/19/19 25 Active meclizine (ANTIVERT) 25 mg tabletIndication s:Vertigo Take 1 Tablet (25 mg) by mouth 3 times daily if needed for Vertigo or Nausea/Vomitin g. 30 Tablet 01/30/20 24 025 Discontinu ed(*Patien t states no longer taking) triamcinolone (ARISTOCORT; KENALOG) 0.1 % creamIndications :Herpes zoster without complication Apply topically to affected area(s) two times daily. Up to 2 weeks for rash 45 g 08/17/20 24 025 Discontinu ed(*Patien t states no longer taking) methylPREDNISolo ne (Medrol, Butch,) 4 mg tabletIndication s:Herpes zoster without complication,Pru ritus Take by mouth as instructed per packaging. 21 Tablet 08/19/20 24 025 Discontinu ed(*Patien t states no longer taking) predniSONE (DELTASONE) 20 mg tabletIndication s:Acute cough Take 2 Tablets (40 mg) by mouth once daily for 5 days. 10 Tablet 12/01/19 25 025 Active Problems Problem Noted Date Diagnosed Date Exercise-induced asthma 12/01/2024 Low ferritin 08/18/2024 Binge eating 08/17/2024 Menorrhagia with regular cycle 08/17/2024 Vertigo 08/17/2024 Anxiety 08/26/2022 OCD (obsessive compulsive disorder) 08/26/2022 Morbid obesity 04/30/2020 Obesity (BMI 30-39.9) 08/14/2015 Encounters Date Type Department Care Team Description 12/22/2024 3:47 PM MODEL PHOTOGRAPHERS' - 12/22/2024 11:59 PM [facility] Hospital En[facility] [address] [place] [address] Robert Light MD Lonetti, Jennifer D, PT BPPV (benign paroxysmal positional vertigo), left 12/22/2024 Travel 12/19/2024 1:20 PM [facility] [place] [facility] [place] [address] [place], [place] [id number] Robert Light MD Dizziness; Immunization/Injec tion 12/19/2024 Travel 12/17/2024 Online Questionnaire [facility]-Visits [address] [place] [address] Tay Andre NP 12/17/2024 Nurse Triage [facility] Centralized Nurse Triage None Vertigo 12/01/2024 8:45 AM MODEL PHOTOGRAPHERS' [place] [facility] [place] [address] [place] [address] Martha Cohen PA Physical (fasting) 12/01/2024 Travel from Last 3 Months Immunizations Name Administration Dates Next Due Hepatitis B (Adult) 06/30/2002,08/02/2001 Hepatitis B (Peds) 06/29/2001 MMR 07/01/1995 Rabies Vaccine 07/02/2001,06/25/2001 Tdap 01/12/2015 Social History Tobacco Use Types Packs/Day Years Used Date Smoking Tobacco: Never Passive Smoke Exposure: Never Smokeless Tobacco: Never Tobacco Cessation:Counseling Given: Not Answered Alcohol Use Standard Drinks/Week Comments Not Currently 0 (1 standard drink = 0.6 oz pur e alcohol) social PHQ-2 Answer Date Recorded PHQ-2 TOTAL SCORE 4 12/01/2024 Social Connections Answer Date Recorded Do you often feel lonely or isolated from those around you? 0 12/01/2024 Financial Resource Strain Answer Date R ecorded Difficulty of Paying Living Expenses 3 12/01/2024 Difficulty of Paying Living Expenses Not on file 12/01/2024 Food Insecurity Answer Date Recorded Do you worry your food will run out before you are able to buy more? 1 12/01/2024 Transportation Needs Answer Date Record ed Does lack of transportation keep you from medica l appointments? 1 12/01/2024 Does lack of transportation keep you from work, meetings or getting things that you need? 1 12/01/2024 Housing Stability Answer Date Recorded What is your housing situation today? 1 12/01/2024 Utilities Answer Date Recorded Do you have trouble paying f or utilities (for example, heat, electricity, water, phone)? 1 12/01/2024 Comments No Sex and Gender Information Value Date Recorded Sex Assigned at Not on file Legal Sex Female 8:06 AM MODEL PHOTOGRAPHERS' Gender Identity Not on file Sexual Orientation Not on file Obstetrics History Para Term AB IAB SAB Ectopic Multiple Livin g Live Births 1 1 Date Outcome GA Total Labor Labor/2nd/3rd Weight Sex Type Anes PTL Cassie A1 A5 Name Clin 015 Term 37w 3d 16h 55m 13h 30m/2h 48m/0h 37m 3.43 kg (7 lb 9 oz) M Vag-V acuum Epidur al Livin g 8 9 RJ Delivery Location:[facility] Comments:IOL for CHTN; prlonged cervical ripening (>60hrs), VAVD for maternal exhaustion/prlonged 2nd stage; retained placenta with manual extraction; followed by AM, del by EC Last Filed Vital Signs Vital Sign Reading Time Taken Comments Blood Pressure 144/90 12/19/2024 1:20 PM [employer]DEL PHOTOGRAPHERS' Pulse 95 12/19/2024 1:20 PM [employer]DEL PHOTOGRAPHERS' Temperature 36.9 C (98.4 F) 12/19/2024 1:20 PM [employer]DEL PHOTOGRAPHERS' Respiratory Rate 16 01/30/2024 9:29 AM CDT Oxygen Saturation 99% 12/19/2024 1:20 PM [employer]DEL PHOTOGRAPHERS' Inhaled Oxygen Concentration - - Weight 110.7 kg (244 lb) 12/19/2024 1:20 PM MODEL PHOTOGRAPHERS' Height 170 cm (5' 6.93) 12/19/2024 1:20 PM MODEL PHOTOGRAPHERS' Body Mass Index 38.3 12/19/2024 1:20 PM MODEL PHOTOGRAPHERS' Plan of Treatment Upcoming Encounters Date Type Department Care Team (Late st Contact Info) Description 12/30/2024 1:45 PM MODEL PHOTOGRAPHERS' Appointment [facility] [place] [address] [employer] [id number] [place] [address] [facility] [address] [place], [place] [id number] Health Maintenance Due Date Last Done Comments HIV for age 15-65 1997 Hepatitis C screening for age 18-79 2000 COVID-19 vaccine series ( season) 2024 Influenza for age 9-49 07/17/2024 Tetanus booster 01/12/2025 01/12/2015 Depression screening for age 12+ 12/01/2025 12/01/2024, 08/17/2024, 05/18/2023, Additional history exists BMI (ht and wt on same day) for age 18+ 12/19/2025 12/19/2024, 12/01/2024, 08/17/2024, Additional history exists Pap test for age 21-65 11/06/2026 3 (Verified in Care Everywhere or Patient Record), 07/10/2020 (Verified in Care Everywhere or Patient Record) Tdap Completed 01/12/2015 Pneumococcal series for age 6-49 Aged Out No longer eligible based on patient's age to complete this topic Procedures Procedure Name Priority Date/Time Associated Diagnosis Comments IRON PLUS IRON BINDING CAP Routine 12/01/2024 9:33 AM [employer]DEL PHOTOGRAPHERS' Low ferritin FERRITIN Routine 12/01/2024 9:33 AM MODEL PHOTOGRAPHERS' Low ferritin CBC WITH AUTO DIFFERENTIAL Routine 12/01/2024 9:33 AM MODEL PHOTOGRAPHERS' Low ferritin LIPID PANEL W REFLEX MEASURED LDL Routine 12/01/2024 9:33 AM MODEL PHOTOGRAPHERS' Screening for hyperlipidemia HEMOGLOBIN A1C Routine 12/01/2024 9:33 AM MODEL PHOTOGRAPHERS' Diabetes mellitus screening GLUCOSE, FASTING Routine 12/01/2024 9:33 AM MODEL PHOTOGRAPHERS' Diabetes mellitus screening from Last 3 Months Results * (ABNORMAL) HEMOGLOBIN A1C (12/01/2024 9:33 AM MODEL PHOTOGRAPHERS') HEMOGLOBIN A1C 5.9(H) <5.7 % of total Hgb [facility] Comment: For someone without known diabetes, a hemoglobin A1c value between 5.7% and 6.4% is consistent with prediabetes and should be confirmed with a follow-up test. For someone with known diabetes, a value <7% indicates that their diabetes is well controlled. A1c targets should be individualized based on duration of diabetes, age, comorbid conditions, and other considerations. This assay result is consistent with an increased risk of diabetes. Currently, no consensus exists regarding use of hemoglobin A1c for diagnosis of diabetes for children. Blood BLOOD SPECIMEN / Unknown 12/01/2024 9:33 AM MODEL PHOTOGRAPHERS' 12/01/2024 9:33 AM MODEL PHOTOGRAPHERS' Martha LINK CHEMISTRY Final Result [facility] [address] [facility] [place] [address], [place] [phone] [facility] [address] [facility] [place] [address] * (ABNORMAL) LIPID PANEL W REFLEX MEASURED LDL (12/01/2024 9:33 AM MODEL PHOTOGRAPHERS') CHOLESTEROL, TOTAL 168 <200 mg/dL [facility] HDL CHOLESTEROL 45(L) > OR = 50 mg/dL [facility] TRIGLYCERIDES 165(H) <150 mg/dL [facility] LDL-CHOLESTEROL 97 mg/dL (calc) [facility] Comment: Reference range: <100 Desirable range <100 mg/dL for primary prevention; <70 mg/dL for patients with CHD or diabetic patients with > or = 2 CHD risk factors. LDL-C is now calculated using the Chance-Anni calculation, which is a validated novel method providing better accuracy than the Friedewald equation in the estimation of LDL-C. Chance SS et al. YANELIS. 2013;310(19): 8207-3391 (http://education.WKS Restaurant.Comparameglio.it/faq/UAY178) CHOL/HDLC RATIO 3.7 <5.0 (calc) [facility] NON HDL CHOLESTEROL 123 <130 mg/dL (calc) [facility] Comment: For patients with diabetes plus 1 major ASCVD risk factor, treating to a non-HDL-C goal of <100 mg/dL (LDL-C of <70 mg/dL) is considered a therapeutic option. Blood BLOOD SPECIMEN / Unknown 12/01/2024 9:33 AM MODEL PHOTOGRAPHERS' 12/01/2024 9:33 AM MODEL PHOTOGRAPHERS' Martha LINK CHEMISTRY Final Result [facility] [address] [place] [address], [facility] [address] [place] [address] * (ABNORMAL) IRON PLUS IRON BINDING CAP (12/01/2024 9:33 AM MODEL PHOTOGRAPHERS') [facility] IRON, TOTAL 40 40 - 190 mcg/dL [facility] [place] IRON BINDING CAPACITY 374 250 - 450 mcg/dL (calc) [facility] % SATURATION 11(L) 16 - 45 % (calc) [facility] Blood BLOOD SPECIMEN / Unknown 12/01/2024 9:33 AM MODEL PHOTOGRAPHERS' 12/01/2024 9:33 AM MODEL PHOTOGRAPHERS' us Martha LINK CHEMISTRY Final Result Performing Organization Address City/[facility]/ZIP Co de Phone Number [employer] [address] [address], [facility] [address] [place] [address] * (ABNORMAL) GLUCOSE, FASTING (12/01/2024 9:33 AM MODEL PHOTOGRAPHERS') [facility] GLUCOSE 101(H) 65 - 99 mg/dL [facility] Comment: Fasting reference interval For someone without known diabetes, a glucose value between 100 and 125 mg/dL is consistent with prediabetes and should be confirmed with a follow-up test. Blood BLOOD SPECIMEN / Unknown 12/01/2024 9:33 AM [facility]DEL PHOTOGRAPHERS' 12/01/2024 9:33 AM MODEL PHOTOGRAPHERS' us Martha LINK CHEMISTRY Final Result [facility] [address] [facility] [place] [address], [facility] [address] [place] [address] * CBC AND DIFFERENTIAL (12/01/2024 9:33 AM MODEL PHOTOGRAPHERS') [facility] WHITE BLOOD CELL COUNT 8.9 3.8 - 10.8 Thousand/u L [facility] RED BLOOD CELL COUNT 4.57 3.80 - 5.10 Million/uL [facility] HEMOGLOBIN 12.8 11.7 - 15.5 g/dL [facility] HEMATOCRIT 39.4 35.0 - 45.0 % [facility] MCV 86.2 80.0 - 100.0 fL [facility] MCH 28.0 27.0 - 33.0 pg [facility] MCHC 32.5 32.0 - 36.0 g/dL [facility] Comment: For adults, a slight decrease in the calculated MCHC value (in the range of 30 to 32 g/dL) is most likely not clinically significant; however, it should be interpreted with caution in correlation with other red cell parameters and the patient's clinical condition. RDW 14.6 11.0 - 15.0 % [facility] PLATELET COUNT 288 140 - 400 Thousand/u L [facility] MPV 10.4 7.5 - 12.5 fL [facility] ABSOLUTE NEUTROPHILS 6,515 1,500 - 7,800 cells/uL [facility] ABSOLUTE LYMPHOCYTES 1,219 850 - 3,900 cells/uL [facility] ABSOLUTE MONOCYTES 917 200 - 950 cells/uL [facility] ABSOLUTE EOSINOPHILS 223 15 - 500 cells/uL [facility] ABSOLUTE BASOPHILS 27 0 - 200 cells/uL [facility] NEUTROPHILS 73.2 % [facility] LYMPHOCYTES 13.7 % [facility] MONOCYTES 10.3 % [facility] EOSINOPHILS 2.5 % [facility] BASOPHILS 0.3 % [facility] Blood BLOOD SPECIMEN / Unknown 12/01/2024 9:33 AM [facility] PHOTOGRAPHERS' 12/01/2024 9:33 AM [facility]DEL PHOTOGRAPHERS' Martha LINK HEMATOLOGY Final Result [facility] [address] [place] [address], [place] [phone] [facility] [address] [place] [address] * FERRITIN (12/01/2024 9:33 AM MODEL PHOTOGRAPHERS') FERRITIN 29 16 - 232 ng/mL [facility] Blood BLOOD SPECIMEN / Unknown 12/01/2024 9:33 AM MODEL PHOTOGRAPHERS' 12/01/2024 9:33 AM MO[facility] PHOTOGRAPHERS' Martha LINK CHEMISTRY Final Result Performing Organization Address [facility] Co de Phone Number [facility] [address] [place] [address], [facility] [address] [place] [address] from Last 3 Months Insurance [facility] Care Teams Instructor Dramatic Arts Relationship Specialty Start Date End Date Pcp, No . PCP - General 12/21/24 Khadar Yañez MBBS [address] [place] [address] Consulting Physician Cardiovascular Disease 08/14/15
--- OUTSIDE RECORDS SUMMARY | 2024-12-24 13:03 | XMS_ITS | Encounter Summary ---
Author Organization [place] Address [facility] [place] [address] Care Team Providers Care Welder Gas Tungsten Arc Name Role Phone [facility] Primary Care Provider Subhash Ferrari MD Unavailable [phone] Subhash Ferrari MD Unavailable [phone] Sonja Hall APRN PRODUCTION LINE WELDER Unavailable Christina Woodard APRN PRODUCTION LINE WELDER Unavailable [phone] Encounter Details Date Type Department Care Team (Late st Contact Info) Description 07/20/2020 [facility] [address] [address] Lindsay Klein, ABEL Social History Tobacco Use Types Packs/Day Years Used Date Smoking Tobacco: Never Smokeless Tobacco: Never Alcohol Use Standard Drinks/Week Comments Yes 0 (1 standard drink = 0.6 oz pur e alcohol) PHQ-2 Answer Date Recorded PHQ-2 Score 3 07/10/2020 Comments No Sex and Gender Information Value Date Recorded Sex Assigned at Not on file Legal Sex Female 4:21 AM ART CONSERVATOR Gender Identity Not on file Sexual Orientation Not on file COVID-19 Exposure Response Date Recorded In the last month, have you been in contact with someone who was confirmed or suspected to have Coronavirus / COVID-19? No / Unsure 07/10/2020 7:36 AM CDT documented as of this encounter Plan of Treatment Not on file documented as of this encounter Visit Diagnoses Not on filedocumented in this encounter Additional Health Concerns Assessment Noted Time PHQ-9 Depression Total Score: 16 020 7:59 AM CDT documented as of this encounter Care Teams Welder Gas Tungsten Arc Relationship Specialty Start Date End Date Clinic, [facility] [place] [facility] [address] [place] [address] PCP - General 09/03/17 [place] [address] [place] [address] Assigned OBGYN Provider 09/07/20 1 [place] [address] [place] [address] Assigned OBGYN Provider 12/30/2011/02 Sonja Hall APRN PRODUCTION LINE WELDER [address] [place] [address] Assigned OBGYN Provider 12/23/20 Christina Woodard APRN PRODUCTION LINE WELDER [address] [place] [address] Assigned OBGYN Provider 11/03/21 documented as of this encounter
--- OUTSIDE RECORDS SUMMARY | 2024-12-24 13:03 | XMS_ITS | Encounter Summary ---
Author Organization [place] Address [address] [place] [address] Care Team Providers Care Foster Care Worker Name Role Phone [facility] Primary Care Provider Christina Woodard APRN TRANSMISSION SYSTEM OPERATOR Unavailable Reason for Visit * Reason Onset Date Comments MyChart Communication 12/19/2024 Encounter Details Date Type Department Care Team (Latest Contact Info) Description 12/19/2024 MyC Medical Advice [facility] [address] [facility] [address] [place] [address] Christina Woodard APRN TRANSMISSION SYSTEM OPERATOR [address] [facility] [address] [place] [address] MyChart Communication Social History Tobacco Use Types [...] on file Legal Sex Female 4:21 AM PLASTICS HEAT WELDER Gender Identity Not on file Sexual Orientation Not on file documented as of this encounter Miscellaneous Notes * Telephone Encounter - Akiko Peña RN - 12/20/2024 9:09 AM PLASTICS HEAT WELDER Routing pt Tanium message to provider to advise. Fernando Peña RN on 12/20/2024 at 9:09 AM WE OBGYN TICS HEAT WELDER * Telephone Encounter - Akiko Negro RN - 12/19/2024 3:10 PM CST Routing to provider. TICS HEAT WELDER documented in this encounter Plan of Treatment Not on file documented as of this encounter Visit Diagnoses Diagnosis Endometriosis- Primary Endometriosis, site unspecified documented in this encounter Additional Health Concerns Assessment Noted Time PHQ-9 Depression Total Score: 0 11/06/20 23 11:30 AM PLASTICS HEAT WELDER documented as of this encounter Care Teams Foster Care Worker Relationship Specialty Start Date End Date Clinic, [facility] [address] [place] [address] PCP - General 09/03/17 Christina Woodard APRN TRANSMISSION SYSTEM OPERATOR [address] [place] [address] Assigned OBGYN Provider 11/03/21 documented as of this encounter
--- OUTSIDE RECORDS SUMMARY | 2024-12-24 13:03 | XMS_ITS | Encounter Summary ---
Author Organization [place] Address [address] [facility] [place] [address] Care Team Providers Care Nurse Examiner Name Role Phone [facility] Primary Care Provider Christina Woodard APRN REINSURANCE ACCOUNTANT Unavailable [phone] Reason for Visit * Reason Onset Date Comments MyChart Communication 06/19/2023 Encounter Details Date Type Department Care Team (Latest Contact Info) Description 06/19/2023 MyC Medical Advice [facility] [address] [facility] [address] [place] [address] Christina Woodard APRN REINSURANCE ACCOUNTANT [address] [facility] 100 [place], [place] [phone] MyChart Communication Social History Tobacco Use Types [...] on file Legal Sex Female 4:21 AM SENIOR BI ARCHITECT Gender Identity Not on file Sexual Orientation Not on file documented as of this encounter Miscellaneous Notes * Telephone Encounter - Akiko Peña, ABEL - 06/19/2023 9:32 AM CDT Family hx of colon cancer and polyps Pt has long hx of constipation and 'issues in that department' Pt wondering when her screening should begin Routing pt mychart message to provider to advise. Fernando Peña RN on 06/19/2023 at 10:24 AM documented in this encounter Plan of Treatment Not on file documented as of this encounter Visit Diagnoses Not on filedocumented in this encounter Additional Health Concerns Assessment Noted Time PHQ-9 Depression Total Score: 2 03/03/20 23 3:28 PM CDT documented as of this encounter Care Teams Nurse Examiner Relationship Specialty Start Date End Date Clinic, [facility] [address] [place] [address] PCP - General 09/03/17 Christina Woodard APRN REINSURANCE ACCOUNTANT [address] [place] [address] Assigned OBGYN Provider 11/03/21 documented as of this encounter
--- OUTSIDE RECORDS SUMMARY | 2024-12-24 13:03 | XMS_ITS | Encounter Summary ---
Author Organization [place] Address [address] [facility] [place] [address] Care Team Providers Care Manager Collection Name Role Phone [facility] Primary Care Provider Christina Woodard APRN LEAD INSTALLER Unavailable [phone] Reason for Visit * Reason Comments Medication Refill Encounter Details Date Type Department Care Team (Late st Contact Info) Description 11/19/2024 Refill [facility] [address] [facility] [address] [place] [phone] Christina Woodard APRN LEAD INSTALLER [address] [facility] 100 [place] [address] Medication Refill Social History Tobacco Use Types Packs/Day Years [...] on file Legal Sex Female 4:21 AM RESISTOR TESTING MACHINE OPERATOR Gender Identity Not on file Sexual Orientation Not on file documented as of this encounter Miscellaneous Notes * Telephone Encounter - Danica Taylor RN - 11/21/2024 10:45 AM CST Requested Prescriptions Pending Prescriptions Disp Refills FLUoxetine (PROZAC) 20 MG capsule [Pharmacy Med Name: FLUOXETINE HCL 20MG CAPS] 90 capsule 3 Sig: TAKE ONE CAPSULE BY MOUTH EVERY DAY SSRIs Protocol Failed - 11/21/2024 10:45 AM Failed - BRIAN-7 score of less than 5 in past 6 months. Please review last BRIAN-7 score. Passed - Medication is active on med list Passed - Recent (12 mo) or future (90 days) visit within the authorizing provider's specialty The patient must have completed an in-person or virtual visit within the past 12 months or has a future visit scheduled within the next 90 days with the authorizing provider???s specialty. Urgent care and e-visits do not qualify as an office visit for this protocol. Passed - Medication indicated for associated diagnosis Medication is associated with one or more of the following diagnoses: Anxiety Bipolar Depression Obsessive-compulsive disorder Panic disorder Postmenopausal flushing Premenstrual dysphoric disorder Social phobia Adjustment disorder with depressed mood Mood disorder Adjustment disorder with anxious mood Passed - Patient is age 18 or older Passed - No active on record Passed - No positive test in last 12 months Last Written Prescription Date: 11/06/23 Last Fill Quantity: 90, # refills: 3 Last office visit: 08/29/2024 ; last virtual visit: Visit date not found with prescribing provider:Christina Woodard NP Future Office Visit: none Pt up to date on annual since 08/29/24 Prozac not discussed in provider notes Routing to provider - Ok to refill for year? Danica Taylor RN on 11/21/2024 at 10:50 AM [facility] O[facility]YN Triage STOR TESTING MACHINE OPERATOR documented in this encounter Plan of Treatment Not on file documented as of this encounter Visit Diagnoses Diagnosis Anxiety Anxiety state, unspecified documented in this encounter Additional Health Concerns Assessment Noted Time PHQ-9 Depression Total Score: 0 12/22/20 23 11:30 AM RESISTOR TESTING MACHINE OPERATOR documented as of this encounter Care Teams Manager Collection Relationship Specialty Start Date End Date Clinic, [facility] [address] [place] [id number] PCP - General 09/03/17 Christina Woodard APRN LEAD INSTALLER [address] [place] [address] Assigned OBGYN Provider 11/03/21 documented as of this encounter
[2024-12-24 13:04] VITALS: BP 144/85; PULSE 89; RESP 20; TEMP 37.3; O2SAT 97; BMI 39.5
--- NOTE | 2024-12-24 13:22 | CRLHL7_ITS ---
For Patients: As a result of the Century Cures Act, medical imaging exams and procedure reports are released immediately into your electronic medical record. You may view this report before your referring provider. If you have questions, please contact your health care provider. INDICATION: Vertigo TECHNIQUE: Noncontrast axial CT of the head. Coronal and sagittal reformats. Bone and soft tissue algorithms. COMPARISON: None. FINDINGS: The ventricles and cortical sulci appear age-appropriate. No midline shift or mass effect. No acute intracranial hemorrhage or extra-axial fluid collection. Wise-white matter differentiation is grossly maintained. White matter attenuation is within normal limits. Intracranial vessels are unremarkable for technique. Midline structures are unremarkable. The calvarium appears grossly intact. Paranasal sinuses and mastoid air cells are clear. Orbits are unremarkable. IMPRESSION: 1. Unremarkable CT head. No evidence of acute intracranial abnormality. Please note that all CT scans at this facility use dose modulation, iterative reconstruction, and/or weight-based dosing when appropriate to reduce radiation dose to as low as reasonably achievable. Dictated by Oneyda Horowitz MD @ 12/24/2024 2:43:08 PM (Electronically Signed)
--- NOTE | 2024-12-24 13:24 | ED.GENADULT ---
HPI - General Adult General Chief complaint: Dizziness/Vertigo Stated complaint: Vertigo Time Seen by Provider: 12/24/24 13:06 History of Present Illness HPI narrative: Patient is a 42 year white female who is generally quite healthy, has had vertiginous symptoms for the last week on and off. She takes fluoxetine on a regular basis, she tried some meclizine that did seem to help very much today. She was feeling pretty well yesterday and seemed to be little better, but then today it has recurred. She feels like she is unsteady the room is spinning. She has had no head injury or trauma. No fevers chills. No prior significant vertiginous symptoms. Patient denies chest pain, denies shortness of breath. Denies neurologic focality or complaint. Does states she has had a little bit of a mild headache. Related Data Home Medications ?Medication ?Instructions ?Recorded ?Confirmed fluoxetine 20 mg capsule 20 mg PO QDAY 06/10/22 12/24/24 meclizine 25 mg tablet 25 mg PO 3XD PRN vertigo 12/24/24 12/24/24 Allergies Allergy/AdvReac Type Severity Reaction Status Date / Time No Known Drug Allergies Allergy Verified 12/24/24 13:13 Review of Systems Status of ROS: Reports: 6 or more systems reviewed and unremarkable except as noted in History and below PFSH [facility] Social History Smoking Status: Never smoker Do you use any of these nicotine containing products: None How often do you have a drink containing alcohol: never How often do you have six or more drinks on one occasion: Never AUDIT-C Alcohol total score: 0 Non-prescribed substance use: denies use Exam Narrative: Exam Narrative: Objective: Patient's vital signs show temperature 99.1? blood pressure 144/85, she is no apparent distress, does feel more dizzy when she sits up or lays down. HEENT is unremarkable negative nystagmus pupils aggression light no facial asymmetry throat clear neck is supple without nodes Chest is clear Pulses regular Neurologic is nonfocal, normal strength sensation upper lower extremities, Const: Vital Signs, click to edit/add: Vital Signs - 24 hr 12/24/24 13:04 Temperature 99.1 F Pulse Rate [Right Pulse Oximeter] 89 Respiratory Rate 20 Blood Pressure [Ri ght Upper Arm] 144/85 H Pulse Oximetry 97 Oxygen Delivery Me thod Room Air Course Vital Signs Vital signs: Initial Vital Signs Temperature 99.1 F 12/24/24 13:04 Temperature Source Temporal Artery Scan 12/24/24 13:04 Pulse Rate 89 12/24/24 13:04 Pulse Rhythm Regular 12/24/24 13:04 Respiratory Rate 20 12/24/24 13:04 Blood Pressure 144/85 H 12/24/24 13:04 Blood Pressure Mean 104 12/24/24 13:04 Blood Pressure Position Sitting 12/24/24 13:04 Pulse Oximetry 97 12/24/24 13:04 Oxygen Delivery Method Room Air 12/24/24 13:04 Vital Signs Temperature 99.1 F 12/24/24 13:04 Pulse Rate 89 12/24/24 13:04 Respiratory Rate 20 12/24/24 13:04 Blood Pressure 144/85 H 12/24/24 13:04 Pulse Oximetry 97 12/24/24 13:04 Oxygen Delivery Method Room Air 12/24/24 13:04 Temperature 99.1 F 12/24/24 13:04 Pulse Rate 89 12/24/24 13:04 Respiratory Rate 20 12/24/24 13:04 Blood Pressure 144/85 H 12/24/24 13:04 Pulse Oximetry 97 12/24/24 13:04 Oxygen Delivery Method Room Air 12/24/24 13:04 Medications Administered Medications: Discontinued Medications Generic Name Dose Route Start Last Admin Trade Name Freq PRN Reason Stop Dose Admin Sodium Chloride 1,000 mls @ 6,000 mls/hr 12/24/24 13:30 12/24/24 13:32 0.9 % Sodium Chloride 1000 Ml IV 12/24/24 13:39 6,000 mls/hr .Q10M SHIRIN Administration Lorazepam 1 mg 12/24/24 13:22 12/24/24 13:33 Lorazepam 2 Mg/Ml Inj IVP 12/24/24 13:23 1 mg ONCE ONE Administration Lorazepam 1 mg 12/24/24 14:25 12/24/24 14:31 Lorazepam 2 Mg/Ml Inj IVP 12/24/24 14:26 1 mg ONCE ONE Administration Medical Decision Making MDM Narrative Medical decision making narrative: [age] white female with vertiginous symptoms over the last week. At this point she appears have a temp of 99.1? would check viral studies, because of her duration of symptoms in the recurrence I would get a CT scan of her head to make sure none of sinusitis or other intracranial pathology. Will give her IV fluid 1 L Ativan 1 mg IV. She has meclizine at home she can use if this is all reassuring. Also check labs including a CRP heme 4 basic 7. She had her comfortable plan and agreed to the above-mentioned workup. Addendum 2:[address] head [address] is unremarkable. Her laboratory studies also look very reassuring. She feels a little bit better with the Ativan and fluid. She got an additional 1 mg Ativan and 500s mL normal saline in addition to 1 L bolus. At this point I think the patient is hemodynamically and neurologically stable to try home. Would recommend rest today should be sedated from the Ativan. She can continue the meclizine at home, light activity recommend for the next several days no driving or going out of the house. Recheck with primary care in the next 2-3 days certainly sooner return to ED as changes or concerns. Lab Data Labs: Lab Results 12/24/24 Range/Units 13:35 WBC 9.04 (4.50-11.00) K/uL RBC 4.62 (4.00-5.20) m/uL Hgb 12.7 (12.0-16.0) gm/dL Hct 38.0 (33.0-51.0) % MCV 82 (80-100) fL MCH 28 (26-34) pg MCHC 33 (32-36) gm/dL RDW Coeff of Saravanan 14.4 (11.5-15.5) % Plt Count 271 (140-440) K/uL Neut % (Auto) 81.1 H (42.0-72.0) % Lymph % (Auto) 12.9 L (20-44) % Grady % (Auto) 5.0 (0.0-11.0) % Eos % (Auto) 0.8 (0.0-7.0) % Baso % (Auto) 0.1 (0.0-3.0) % Neut # (Auto) 7.30 H (1.7-7.0) K/uL Lymph # (Auto) 1.20 (0.90-2.90) K/uL Grady # (Auto) 0.50 (0.00-0.90) K/UL Eos # (Auto) 0.07 (0.00-0.50) K/uL Baso # (Auto) 0.01 (0.00-0.30) K/uL Abs Immat Gran (auto) 0.01 (0.00-0.30) K/uL Imm/Tot Granulo (auto) 0.1 % Sodium 138 (135-149) mmol/L Potassium 3.8 (3.6-5.1) mmol/L Chloride 107 (96-114) mmol/L Carbon Dioxide 19 L (20-32) mmol/L Anion Gap 12 (7-15) mEq/L BUN 12 (5-24) mg/dL Creatinine 0.7 (0.5-1.5) mg/dL Estimated Creat Clear 98.01 Estimated GFR 111 ml/min Glucose 108 (60-115) mg/dL Calcium 9.4 (8.4-10.6) mg/dL SARS-CoV-2 (PCR) Negative SARS-CoV-2 (Negative) Influenza Type A (PCR) Negative PCR FLU A (Negative) Influenza Type B (PCR) Negative PCR FLU B (Negative) RSV (PCR) Negative PCR RSV (Negative) Discharge Plan Discharge Clinical Impression: Vertigo Patient Disposition: Home w/ Parent or Adult Condition: Stable Additional Instructions: Light activity, would not go to work for the next couple of days. Follow up with primary care in 2-3 days. Continue the meclizine as needed at home. Activity Level: Light activity Discharge Diet: Regular Prescriptions: No Action fluoxetine 20 mg capsule 20 mg PO QDAY meclizine 25 mg tablet 25 mg PO 3XD PRN (Reason: vertigo) Follow Up/Referrals: Tammi Souza PA-C [Primary Care Provider] - Stand Alone Forms: MyHealth Info Instructions
[2024-12-24] MEDS: 0.9 % SODIUM CHLORIDE 1000 ml 1,000 ML 6000 ML IV (13:32)
[2024-12-24] MEDS: LORazepam 2 MG/ML inj 1 MG IVP ×2 (13:33→14:31)
--- OUTSIDE RECORDS SUMMARY | 2024-12-24 13:33 | XMS_ITS | Encounter Summary ---
Author Organization [facility] Address [facility] [place] [address] Care Team Providers Care Account Auditor Name Role Phone [facility] Primary Care Provider Subhash Ferrari MD Unavailable [phone] Christina Woodard APRN AMMONIA BOX OPERATOR Unavailable Reason for Visit * Reason Onset Date Comments MyChart Communication 09/18/2021 Encounter Details Date Type Department Care Team (Latest Contact Info) Description 09/18/2021 MyC Medical Advice [facility] [address] [place] [phone] Christina Woodard APRN AMMONIA BOX OPERATOR [address] [address] MyChart Communication Social History Tobacco [...] on file 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 Maria Del Carmen Rojas, RN on 09/19/2021 at 6:43 AM documented in this encounter Plan of Treatment Not on file documented as of this encounter Visit Diagnoses Not on filedocumented in this encounter Additional Health Concerns Assessment Noted Time PHQ-9 Depression Total Score: 0 07/18/20 21 2:19 PM CDT documented as of this encounter Care Teams Account Auditor Relationship Specialty Start Date End Date Clinic, [facility] [address] [facility] [address] [place] [address] PCP - General 09/03/17 [place] [address] [place] [address] Assigned OBGYN Provider 12/30/2011/02 Christina Woodard APRN AMMONIA BOX OPERATOR [address] [facility] [address] [place] [address] Assigned OBGYN Provider 11/03/21 documented as of this encounter
--- OUTSIDE RECORDS SUMMARY | 2024-12-24 13:33 | XMS_ITS | Encounter Summary ---
Author Organization [place] Address [address] [facility] [place] [address] Care Team Providers Care Corporate Giving Manager Name Role Phone [facility] Primary Care Provider Christina Woodard APRN CHUTE TAPPER Unavailable Reason for Visit * Reason Onset Date Comments MyChart Communication 08/14/2022 Encounter Details Date Type Department Care Team (Latest Contact Info) Description 08/14/2022 MyC Medical Advice [facility] [address] [facility] [address] [place] [address] Christina Woodard APRN CHUTE TAPPER [address] [facility] 100 [place], [place] [phone] MyChart Communication Social History Tobacco Use Types [...] on file 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 Follow-up questions [...] documented as of this encounter Care Teams Corporate Giving Manager Relationship Specialty Start Date End Date [facility], [facility] [address] [facility] [address] [place] [phone] PCP - General 09/03/17 Christina Woodard APRN CHUTE TAPPER [address] [facility] [address] [place] [address] Assigned OBGYN Provider 11/03/21 documented as of this encounter
--- OUTSIDE RECORDS SUMMARY | 2024-12-24 13:33 | XMS_ITS | Encounter Summary ---
Author Organization [place] Address [facility] [place] [address] Care Team Providers Care Shop Fitter Name Role Phone [facility] Primary Care Provider Subhash Ferrari MD Unavailable [phone] Subhash Ferrari MD Unavailable [phone] Sonja Hall APRN CUSTOMER ENERGY SPECIALIST Unavailable Christina Woodard APRN CUSTOMER ENERGY SPECIALIST Unavailable [phone] Reason for Visit * Reason Onset Date Comments Orders 02/11/2018 Encounter Details Date Type Department Care Team (Late st Contact Info) Description 02/11/2018 Telephone M [address] [phone] Masters, Meri Rand, [address] [place] [phone] Orders Social History Tobacco Use Types Packs/Day Years Used Date Smoking Tobacco: Never Smokeless Tobacco: Never Alcohol Use Standard Drinks/Week Comments Yes 0 (1 standard drink = 0.6 oz pur e alcohol) Comments No Sex and Gender Information Value Date Recorded Sex Assigned at Not on file 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 Can we leave [...] documented as of this encounter Care Teams Shop Fitter Relationship Specialty Start Date End Date Clinic, [facility] [address] [facility] [address] [place] [phone] PCP - General 09/03/17 [place] [address] [place] [address] Assigned OBGYN Provider 09/07/20 1 [place] [address] [place] [address] Assigned OBGYN Provider 12/30/2011/02 Sonja Hall APRN CNP [address] [facility] [address] [place] [address] Assigned OBGYN Provider 12/23/20 Christina Woodard APRN CUSTOMER ENERGY SPECIALIST [address] [place] [address] Assigned OBGYN Provider 11/03/21 documented as of this encounter
--- OUTSIDE RECORDS SUMMARY | 2024-12-24 13:33 | XMS_ITS | Clinical Summary ---
Author Organization [place] Address [address] [facility] [place] [address] Care Team Providers Care Office Administration Instructor Name Role Phone [facility] [place] Primary Care Provider Christina Woodard APRN REGISTERED PHLEBOTOMIST PART TIME Unavailable Allergies No known active allergies Medications [...] (05/01/2020): Added automatically from request for surgery [id number] Morbid obesity 04/30/2020 Obesity (BMI 30-39.9) 08/14/2015 [...] Care Team Description 12/19/2024 MyC Medical Advice [facility] for [address] [phone] Christina Woodard APRN CNP MyChart Communication 11/19/2024 Refill [facility] for [address] [phone] Christina Woodard APRN CNP Medication Refill from [...] on file 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 Gender Identity Not on file Sexual Orientation Not on file Last Filed Vital Signs Vital Sign Reading Time Taken Comments Blood Pressure 122/68 08/29/2024 2:22 PM CDT Pulse 84 12/18/2020 1:46 PM LAPPING 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 Temperature 36.9 C (98.4 F) 08/06/2020 2:48 [...] Hyperglycemia LIPID PROFILE Routine 11/06/2023 11:50 AM LAPPING 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 Encounter for lipid screening for cardiovascular disease COMPREHENSIVE METABOLIC PANEL Routine 11/06/2023 11:50 AM LAPPING 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 Screening for metabolic disorder HEPATITIS C ANTIBODY Routine 08/11/2022 12:58 PM CDT Screening examination for venereal disease from Last 3 Months or Most Recently Relevant to Health Maintenance Results * HIV Antigen Antibody Combo [place] (08/29/2024 2:56 PM CDT) Pathologist [facility] HIV Antigen Antibody Combo Nonreactive Nonreactive 08/30/2024 [...] 3:00 PM CDT us Christinaherlinda Woodard APRN REGISTERED PHLEBOTOMIST PART TIME LAB - BLOOD ORDERABLE S Final Result [facility] [address] [facility] [address], Room [address] [place] [phone], [facility] * HPV and Gynecologic Cytology Panel ??? [...] for high risk HPV DNA. METHODOLOGY: The [employer] system uses automated extraction, simultaneous amplification of [...] 08/29/2024 3:02 PM CDT Christina Woodard APRN REGISTERED PHLEBOTOMIST PART TIME LAB - BLOOD ORDERABLE S Final Result SPECIALTY LABS [facility] [address] [facility] [address], [address] [address], [facility] MOLECULAR DIAGNOSTICS Molecular Diagnostics [address] [facility] [address], [address] [address], [facility] * MA Screen Bilateral w/Roni (08/01/2024 11:49 [...] BLOOD ORDERABLE S Final Result [facility] [address] [facility], [address] [place] [address], [facility] * (ABNORMAL) Lipid Profile (11/06/2023 11:50 AM LAPPING 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) Cholesterol 176 <200 mg/dL 11/06/2023 10:30 PM LAPPING 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 [facility] Triglycerides 206(H) <150 mg/dL 11/06/2023 10:30 PM LAPPING 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 [facility] Direct Measure HDL 39(L) >=50 mg/dL 11/06/2023 10:30 PM LAPPING 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 [facility] LDL Cholesterol Calculated 96 <=100 mg/dL 11/06/2023 10:30 PM LAPPING 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 [facility] Non HDL Cholesterol 137(H) <130 mg/dL 11/06/2023 10:30 PM LAPPING 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 [facility] Patient Fasting > 8hrs? Yes 11/06/2023 10:30 PM LAPPING 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 [facility] Blood STRUCTURE OF LEFT UPPER LIMB / Unknown Venipuncture / Unknown 11/06/2023 11:50 AM LAPPING 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 11/06/2023 11:53 AM LAPPING 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 Narrative [facility] - 11/06/2023 10:30 PM LAPPING 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 Cholesterol Desirable: <200 mg/dL Triglycerides Normal: Less [...] equal to 220 mg/dL us Christina Woodard PARTS FINISHER REGISTERED PHLEBOTOMIST PART TIME LAB - BLOOD ORDERABLE S Final Result [facility] [address] [facility], [address] [place] [address], [facility] [phone] * (ABNORMAL) Comprehensive metabolic panel (11/06/2023 11:50 AM LAPPING 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) [facility] Signature Sodium 139 135 - 145 mmol/L 11/06/2023 10:30 PM LAPPING 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 [facility] Comment:Reference intervals for this test were updated on 08/11/2023 to more accurately reflect our healthy population. There may be differences in the flagging of prior results with similar values performed with this method. Interpretation of those prior results can be made in the context of the updated reference intervals. Potassium 4.1 3.4 - 5.3 mmol/L 11/06/2023 10:30 PM LAPPING 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 [facility] Carbon Dioxide (CO2) 21(L) 22 - 29 mmol/L 11/06/2023 10:30 PM LAPPING 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 [facility] Anion Gap 13 7 - 15 mmol/L 11/06/2023 10:30 PM LAPPING 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 [facility] Urea Nitrogen 9.5 6.0 - 20.0 mg/dL 11/06/2023 10:30 PM LAPPING 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 [facility] Creatinine 0.85 0.51 - 0.95 mg/dL 11/06/2023 10:30 PM LAPPING 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 [facility] GFR Estimate 88 >60 mL/min/1. 73m2 11/06/2023 10:30 PM LAPPING 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 [facility] Calcium 9.4 8.6 - 10.0 mg/dL 11/06/2023 10:30 PM LAPPING 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 [facility] Chloride 105 98 - 107 mmol/L 11/06/2023 10:30 PM LAPPING 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 [facility] Glucose 95 70 - 99 mg/dL 11/06/2023 10:30 PM LAPPING 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 [facility] Alkaline Phosphatase 67 40 - 150 U/L 11/06/2023 10:30 PM LAPPING 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 [facility] Comment:Reference intervals for this test were updated on 09/29/2023 to more accurately reflect our healthy population. There may be differences in the flagging of prior results with similar values performed with this method. Interpretation of those prior results can be made in the context of the updated reference intervals. AST 21 0 - 45 U/L 11/06/2023 10:30 PM LAPPING 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 [facility] Comment:Reference intervals for this test were updated on 04/27/2023 to more accurately reflect our healthy population. There may be differences in the flagging of prior results with similar values performed with this method. Interpretation of those prior results can be made in the context of the updated reference intervals. ALT 15 0 - 50 U/L 11/06/2023 10:30 PM LAPPING 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 [facility] Comment:Reference intervals for this test were updated on 04/27/2023 to more accurately reflect our healthy population. There may be differences in the flagging of prior results with similar values performed with this method. Interpretation of those prior results can be made in the context of the updated reference intervals. Protein Total 7.1 6.4 - 8.3 g/dL 11/06/2023 10:30 PM LAPPING 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 [facility] Albumin 4.4 3.5 - 5.2 g/dL 11/06/2023 10:30 PM LAPPING 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 [facility] Bilirubin Total 0.9 <=1.2 mg/dL 11/06/2023 10:30 PM LAPPING 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 [facility] Blood STRUCTURE OF LEFT UPPER LIMB / Unknown Venipuncture / Unknown 11/06/2023 11:50 AM LAPPING 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 11/06/2023 11:53 AM LAPPING 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 us Christina Dana Woodard PARTS FINISHER REGISTERED PHLEBOTOMIST PART TIME LAB - BLOOD ORDERABLE S Final Result [facility] [address] [facility], [address] [address], [facility] [phone] * Hepatitis C antibody (08/11/2022 12:58 PM [...] infants, and children. us Sonja Hall APRN REGISTERED PHLEBOTOMIST PART TIME LAB - BLOOD ORDE OMI Final Result UM SPECIALTY CORE/PROT/ENDO Specialty Core/Prot/Endo [address] [facility] [address], [address] [place] [address], [facility] [phone] from Last 3 Months or Most Recently Relevant to Health Maintenance Insurance [employer] [facility] Genetic Finance Care Teams Office Administration Instructor Relationship Specialty Start Date End Date [facility], [facility] Women [facility] [address] [facility] [address] [place] [address] PCP - General 09/03/17 Christina Woodard APRN REGISTERED PHLEBOTOMIST PART TIME [address] [place] [address] Assigned OBGYN Provider 11/03/21
--- OUTSIDE RECORDS SUMMARY | 2024-12-24 13:33 | XMS_ITS | Encounter Summary ---
Author Organization [place] Address [facility] [place] [address] Care Team Providers Care Qc Manager Name Role Phone [facility] Primary Care Provider Subhash Ferrari MD Unavailable [phone] Christina Woodard APRN NARROW FABRIC CALENDERER Unavailable Reason for Visit * Reason Onset Date Comments MyChart Communication 09/23/2021 Encounter Details Date Type Department Care Team (Latest Contact Info) Description 09/23/2021 MyC Medical Advice [facility] [address] [place] [address] Christina Woodard APRN NARROW FABRIC CALENDERER [address] [address] MyChart Communication Social History Tobacco [...] on file 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 Women [facility] [address] [facility] [address] [place] [address] PCP - General 09/03/17 [place] [address] [place] [address] Assigned OBGYN Provider 12/30/2011/02 Christina Woodard APRN NARROW FABRIC CALENDERER [address] [place] [address] Assigned OBGYN Provider 11/03/21 documented as of this encounter
--- OUTSIDE RECORDS SUMMARY | 2024-12-24 13:33 | XMS_ITS | Encounter Summary ---
Author Organization [place] Address [address] [place] [address] Care Team Providers Care Filleter Name Role Phone [facility] Primary Care Provider Christina Woodard APRN INDUSTRIAL MAINTENANCE TECH Unavailable [phone] Reason for Visit * Reason Onset Date Comments MyChart Communication 06/19/2023 Encounter Details Date Type Department Care Team (Latest Contact Info) Description 06/19/2023 MyC Medical Advice [facility] [address] [facility] 100 [place] [address] Christina Woodard APRN INDUSTRIAL MAINTENANCE TECH [address] 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
--- OUTSIDE RECORDS SUMMARY | 2024-12-24 13:33 | XMS_ITS | Encounter Summary ---
Author Organization [place] Address [address] [facility] [address] Care Team Providers Care Director Of Marketing Google Performance Ads Name Role Phone [facility] Primary Care Provider Christina Woodard APRN FIELD ARTILLERY BASIC Unavailable Reason for Visit * Reason Onset Date Comments MyChart Communication 01/21/2022 Encounter Details Date Type Department Care Team (Latest Contact Info) Description 01/21/2022 MyC Medical Advice [facility] [address] [facility] 100 [place] [address] Christina Woodard APRN FIELD ARTILLERY BASIC [address] [facility] 100 [place], [place] [id number] MyChart Communication Social History Tobacco Use Types Packs/Day Years Used Date Smoking Tobacco: Never Smokeless Tobacco: Never Alcohol Use Standard Drinks/Week Comments Yes 0 (1 standard drink = 0.6 oz pur e alcohol) [facility]ass PHQ-2 Answer Date Recorded PHQ-2 Score 0 07/18/2021 Comments No Sex and Gender Information Value Date Recorded Sex Assigned at Not on file 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 No / Unsure 01/24/2022 8:00 AM CONDUCTOR AND ENGINEER documented as of this encounter Miscellaneous Notes * Telephone Encounter - Akiko Peña RN - 01/22/2022 11:28 AM CONDUCTOR AND ENGINEER Routing pt [email or web address] message to provider to advise. Fernando Peña RN on 01/22/2022 at 11:29 AM UCTOR AND ENGINEER documented in this encounter Plan of Treatment Not on file documented as of this encounter Visit Diagnoses Not on filedocumented in this encounter Additional Health Concerns Assessment Noted Time PHQ-9 Depression Total Score: 0 07/18/20 21 2:19 PM CDT documented as of this encounter Care Teams Director Of Marketing Google Performance Ads Relationship Specialty Start Date End Date Clinic, [facility] [address] [place] [address] PCP - General 09/03/17 Christina Woodard APRN FIELD ARTILLERY BASIC [address] [place] [address] Assigned OBGYN Provider 11/03/21 documented as of this encounter
--- OUTSIDE RECORDS SUMMARY | 2024-12-24 13:33 | XMS_ITS | Encounter Summary ---
Author Organization [place] Address [address] [facility] [place] [address] Care Team Providers Care Chief Nurse Anesthetist Name Role Phone [facility] Primary Care Provider Christina Woodard APRN FILLING HAULER WEAVING Unavailable Reason for Visit * Reason Onset Date Comments MyChart Communication 12/19/2024 Encounter Details Date Type Department Care Team (Latest Contact Info) Description 12/19/2024 MyC Medical Advice [facility] [address] [facility] 100 [place] [address] Christina Woodard APRN FILLING HAULER WEAVING [address] [facility] 100 [place] [address] MyChart Communication Social History Tobacco Use Types [...] on file Legal Sex Female 4:21 AM PETROLEUM PRODUCTS DISTRICT SUPERVISOR Gender Identity Not on file Sexual Orientation Not on file documented as of this encounter Miscellaneous Notes * Telephone Encounter - Akiko Peña RN - 12/20/2024 9:09 AM PETROLEUM PRODUCTS DISTRICT SUPERVISOR Routing pt [employer] message to provider to advise. Fernando Peña RN on 12/20/2024 at 9:09 AM WE OBGYN OLEUM PRODUCTS DISTRICT SUPERVISOR * Telephone Encounter - Akiko Negro RN - 12/19/2024 3:10 PM CST Routing to provider. OLEUM PRODUCTS DISTRICT SUPERVISOR documented in this encounter Plan of Treatment Not on file documented as of this encounter Visit Diagnoses Diagnosis Endometriosis- Primary Endometriosis, site unspecified documented in this encounter Additional Health Concerns Assessment Noted Time PHQ-9 Depression Total Score: 0 11/06/20 23 11:30 AM PETROLEUM PRODUCTS DISTRICT SUPERVISOR documented as of this encounter Care Teams Chief Nurse Anesthetist Relationship Specialty Start Date End Date Clinic, [facility] Women [facility] [address] [place] [phone] PCP - General 09/03/17 Christina Woodard APRN FILLING HAULER WEAVING [address] [place] [address] Assigned OBGYN Provider 11/03/21 documented as of this encounter
--- OUTSIDE RECORDS SUMMARY | 2024-12-24 13:33 | XMS_ITS | Encounter Summary ---
Author Organization [place] Address [address] [facility] [place] [address] Care Team Providers Care Peer Financial Counselor Name Role Phone [facility] Primary Care Provider Christina Woodard APRN ACCOUNTING BOOKKEEPER Unavailable [phone] Reason for Visit * Reason Comments Medication Refill Encounter Details Date Type Department Care Team (Late st Contact Info) Description 11/19/2024 Refill [facility] [address] [facility] 100 [place] [phone] Christina Woodard APRN ACCOUNTING BOOKKEEPER [address] [facility] 100 [place] [address] Medication Refill Social History Tobacco Use Types [...] on file Legal Sex Female 4:21 AM PANEL MONITOR Gender Identity Not on file Sexual Orientation [...] 11/21/2024 at 10:50 AM WE OBGYN Triage L MONITOR documented in this encounter Plan of Treatment Not on file documented as of this encounter Visit Diagnoses Diagnosis Anxiety Anxiety state, unspecified documented in this encounter Additional Health Concerns Assessment Noted Time PHQ-9 Depression Total Score: 0 12/22/20 23 11:30 AM PANEL MONITOR documented as of this encounter Care Teams Peer Financial Counselor Relationship Specialty Start Date End Date Clinic, [facility] [address] [place] [phone] PCP - General 09/03/17 Christina Woodard APRN ACCOUNTING BOOKKEEPER [address] [place] [address] Assigned OBGYN Provider 11/03/21 documented as of this encounter
--- OUTSIDE RECORDS SUMMARY | 2024-12-24 13:33 | XMS_ITS | Encounter Summary ---
Author Organization [place] Address [address] [facility] [place] [address] Care Team Providers Care Montessori Lead Teacher Name Role Phone [facility][1] Primary Care Provider Christina Woodard APRN PRINTING AND STAMPING SUPERVISOR Unavailable [phone] Reason for Visit * Reason Onset Date Comments MyChart Communication 03/19/2023 Encounter Details Date Type Department Care Team (Latest Contact Info) Description 03/19/2023 MyC Medical Advice [facility] [address] [facility] 100 [place] [address] Christina Woodard APRN PRINTING AND STAMPING SUPERVISOR [address] [facility] 100 [place], [place] [phone] MyChart Communication Social History Tobacco Use Types [...] on file 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
--- OUTSIDE RECORDS SUMMARY | 2024-12-24 13:33 | XMS_ITS | Encounter Summary ---
Author Organization [place] Address [facility] [place] [address] Care Team Providers Care Honey Processor Name Role Phone [facility] Primary Care Provider Subhash Ferrari MD Unavailable [phone] Subhash Ferrari MD Unavailable [phone] Sonja Hall PROFILE STITCHING MACHINE OPERATOR WATER HAULER Unavailable Christina Woodard APRN WATER HAULER Unavailable [phone] Encounter Details Date Type Department Care Team (Late st Contact Info) Description 08/14/2020 [facility] [address] [phone] Christina Rowe RN Social History Tobacco Use Types Packs/Day Years Used Date Smoking Tobacco: Never Smokeless Tobacco: Never Alcohol Use Standard Drinks/Week Comments Yes 0 (1 standard drink = 0.6 oz pur e alcohol) PHQ-2 Answer Date Recorded PHQ-2 Score 3 07/10/2020 Comments No Sex and Gender Information Value Date Recorded Sex Assigned at Not on file Legal Sex Female 4:21 AM LAMINATOR PRINTED CIRCUIT BOARDS Gender Identity Not on file Sexual Orientation [...] documented as of this encounter Care Teams Honey Processor Relationship Specialty Start Date End Date Clinic, [facility] Women [facility] [address] [place] [address] PCP - General 09/03/17 [place] [address] [place] [address] Assigned OBGYN Provider 09/07/20 1 [place] [address] [place] [address] Assigned OBGYN Provider 12/30/2011/02 Sonja Hall APRN WATER HAULER [address] [place] [address] Assigned OBGYN Provider 12/23/20 Christina Woodard APRN WATER HAULER [address] [place] [address] Assigned OBGYN Provider 11/03/21 documented as of this encounter
--- OUTSIDE RECORDS SUMMARY | 2024-12-24 13:33 | XMS_ITS | Encounter Summary ---
Author Organization [place] Address [address] [facility] [place] [address] Care Team Providers Care Sales Development Coordinator Name Role Phone [facility] Primary Care Provider Christina Woodard APRN STATION INSPECTOR Unavailable [phone] Reason for Referral * Diagnostic Imaging Ultrasound (Routine) - Pending Review Specialty Diagnoses / Procedures Referred By Issa lazcano Referred To Contact Radiology. Diagnoses History of endometriosis Procedures US Transvaginal Pelvic Non-OB Christina Woodard APRN CNP [address] [facility] [address] [place] [address] Phone: tel: fax: Referral ID Status Reason Start Date Expiration Date V isits Requested Visits Authorized [id number] Pending Review 08/18/2024 08/18/2025 1 1 Reason for Visit * Reason Onset Date Comments MyChart Communication 08/18/2024 Encounter Details Date Type Department Care Team (Latest Contact Info) Description 08/18/2024 [facility] Adv[facility] Women [place] [address] [facility] [address] [place] [phone] Christina Woodard APRN STATION INSPECTOR [address] [place] [address] MyChart Communication Social History Tobacco Use Types [...] on file Legal Sex Female 4:21 AM SUPERVISOR MAILS Gender Identity Not on file Sexual Orientation [...] 1:56 PM CDT Pt update Routing pt [employer] message to provider to advise. Fernando Peña RN on 08/18/2024 at 1:56 PM WE OBGYN' * Telephone Encounter - Akiko Peña RN - 08/18/2024 8:44 AM CDT Pt giving updates with clots with periods. Now on oral iron due to low ferritin-11 Pictures included in mychart Will recommend US and visit, review ER precautions Anything else to add? Routing pt [employer] message to provider to advise. Fernando Peña [...] included. US Transvaginal Pelvic Non-OB Order #: [id number] Study Notes Sari Ya on 08/29/2024 1:58 PM Gynecological Ultrasound Report Pelvic U/S - Transvaginal [facility] Referring Provider: Christina Woodard CNP Ship Officer: Sari Ya RDMS Indication: Endometriosis LMP: No [...] Total Score: 0 11/06/20 23 11:30 AM SUPERVISOR MAILS documented as of this encounter Care Teams Sales Development Coordinator Relationship Specialty Start Date End Date [facility] Women [facility] [address] [facility] [address] [place] [address] PCP - General 09/03/17 Christina Woodard APRN STATION INSPECTOR [address] [facility] [place] [address] Assigned OBGYN Provider 11/03/21 documented as of this encounter
--- OUTSIDE RECORDS SUMMARY | 2024-12-24 13:33 | XMS_ITS | Encounter Summary ---
Author Organization [place] Address [address] [facility] [place] [address] Care Team Providers Care Glassine Machine Tender Name Role Phone [facility] Primary Care Provider Christina Woodard APRN FARM MANAGEMENT PROFESSOR Unavailable [phone] Reason for Visit * Reason Onset Date Comments MyChart Communication 12/05/2021 Encounter Details Date Type Department Care Team (Latest Contact Info) Description 12/05/2021 MyC Medical Advice [facility] [address] [facility] 100 [place] [address] Christina Woodard APRN FARM MANAGEMENT PROFESSOR [address] [facility] 100 [place], [place] [id number] MyChart Communication Social History Tobacco Use Types Packs/Day Years Used Date Smoking Tobacco: Never Smokeless Tobacco: Never Alcohol Use Standard Drinks/Week Comments Yes 0 (1 standard drink = 0.6 oz pur e alcohol) Ocass PHQ-2 Answer Date Recorded PHQ-2 Score 0 07/18/2021 Comments No Sex and Gender Information Value Date Recorded Sex Assigned at Not on file Legal Sex Female 4:21 AM IVORY POLISHER Gender Identity Not on file Sexual Orientation Not on file COVID-19 Exposure Response Date Recorded In the last month, have you been in contact with someone who was confirmed or suspected to have Coronavirus / COVID-19? No / Unsure 11/28/2021 8:36 AM IVORY POLISHER documented as of this encounter Plan of Treatment Not on file documented as of this encounter Visit Diagnoses Not on filedocumented in this encounter Additional Health Concerns Assessment Noted Time PHQ-9 Depression Total Score: 0 07/18/20 21 2:19 PM CDT documented as of this encounter Care Teams Glassine Machine Tender Relationship Specialty Start Date End Date Clinic, [facility] [address] [facility] [address] [place] [phone] PCP - General 09/03/17 Christina Woodard APRN FARM MANAGEMENT PROFESSOR [address] [place] [address] Assigned OBGYN Provider 11/03/21 documented as of this encounter
--- OUTSIDE RECORDS SUMMARY | 2024-12-24 13:33 | XMS_ITS | Encounter Summary ---
Author Organization [place] Address Critical access hospital0 [facility] [place] [address] Care Team Providers Care Cutter Head Sharpener Name Role Phone [facility] Primary Care Provider Subhash Ferrari MD Unavailable Christina Woodard APRN GROCERY STOCK CLERK Unavailable [phone] Encounter Details Date Type Department Care Team (Late st Contact Info) Description 07/19/2021 [facility] Medical Advice [facility] Women [place] [address] [facility] 100 [place] [address] Christina Woodard APRN GROCERY STOCK CLERK [address] 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 Gender Identity Not on file Sexual Orientation [...] documented as of this encounter Care Teams Cutter Head Sharpener Relationship Specialty Start Date End Date Clinic, [facility] [address] [facility] [address] [place] [address] PCP - General 09/03/17 [place] [address] [place] [address] Assigned OBGYN Provider 12/30/2011/02 Christina Woodard APRN GROCERY STOCK CLERK [address] [facility] [[email or web address] [address] [place] [address] Assigned OBGYN Provider 11/03/21 documented as of this encounter
--- OUTSIDE RECORDS SUMMARY | 2024-12-24 13:33 | XMS_ITS | Encounter Summary ---
Author Organization [place] Address [facility] [place] [address] Care Team Providers Care Bowling Ball Patcher Name Role Phone [facility] Primary Care Provider Sbuhash Ferrari MD Unavailable Subhash Ferrari MD Unavailable [phone] Sonja Hall APRN PROP ATTENDANT Unavailable Christina Woodard APRN PROP ATTENDANT Unavailable Reason for Visit * Reason Onset Date Comments MyChart Communication 11/02/2020 Encounter Details Date Type Department Care Team (Latest Contact Info) Description 11/02/2020 [facility] Women [place] [address] [phone] Christina Woodard APRN PROP ATTENDANT 65[address] [facility] 100 [place] [address] MyChart Communication Social History Tobacco Use Types Packs/Day Years Used Date Smoking Tobacco: Never Smokeless Tobacco: Never Alcohol Use Standard Drinks/Week Comments Yes 0 (1 standard drink = 0.6 oz pur e alcohol) PHQ-2 Answer Date Recorded PHQ-2 Score 3 07/10/2020 Comments No Sex and Gender Information Value Date Recorded Sex Assigned at Not on file Legal Sex Female 4:21 AM REED OR WIND INSTRUMENT TUNER Gender Identity Not on file Sexual Orientation Not on file documented as of this encounter Miscellaneous Notes * Telephone Encounter - Christina Woodard APRN CNP - 11/29/2020 12:24 PM REED OR WIND INSTRUMENT TUNER Iron is okay for now. Recheck ferritin this summer again OR WIND INSTRUMENT TUNER * Telephone Encounter - Tricia Bain RN - 11/28/2020 8:41 AM CST Component Latest Ref Rng & Units 09/19/2020 Ferritin 12 - 150 ng/mL 78 OR WIND INSTRUMENT TUNER documented in this encounter Plan of Treatment Not on file documented as of this encounter Visit Diagnoses Not on filedocumented in this encounter Additional Health Concerns Assessment Noted Time PHQ-9 Depression Total Score: 16 020 7:59 AM CDT documented as of this encounter Care Teams Bowling Ball Patcher Relationship Specialty Start Date End Date Clinic, [facility] [address] [place] [address] PCP - General 09/03/17 [place] [address] [place] [address] Assigned OBGYN Provider 09/07/20 1 [place] [address] [place] [address] Assigned OBGYN Provider 12/30/2011/02 Sonja Hall APRN PROP ATTENDANT [address] [place] [address] Assigned OBGYN Provider 12/23/20 Christina Woodard APRN PROP ATTENDANT [address] [facility] [[email or web address] [address] [place] [address] Assigned OBGYN Provider 11/03/21 documented as of this encounter
--- OUTSIDE RECORDS SUMMARY | 2024-12-24 13:34 | XMS_ITS | Encounter Summary ---
Author Organization [place] Address [address] [place] [address] Care Team Providers Care Division Human Resources Manager Name Role Phone [facility] Primary Care Provider Subhash Ferrari MD Unavailable [phone] Christina Woodard APRN PIER WORKER Unavailable [phone] Reason for Referral * Diagnostic Imaging Ultrasound (Routine) - Closed Specialty Diagnoses / Procedures Referred By Issa lazcano Referred To Contact Diagnoses Abnormal uterine bleeding Procedures US Transvaginal Non OB Christina Woodard APRN PIER WORKER [address] [facility] [address] [place] [address] Phone: tel: fax: Referral ID Status Reason Start Date Expiration Date Visits Re quested Visits Authorized [id number] Closed 03/19/2021 03/19/2022 1 1 Reason for Visit * Reason Onset Date Comments MyChart Communication 03/17/2021 Encounter Details Date Type Department Care Team (Latest Contact Info) Description 03/17/2021 [facility] [place] 65[address] [facility] 100 [place] [phone] Christina Woodard APRN PIER WORKER [address] [facility] 100 [place] [address] (work) [employer] Communication Social History Tobacco Use Types Packs/Day Years Used Date Smoking Tobacco: Never Smokeless Tobacco: Never Alcohol Use Standard Drinks/Week Comments Yes 0 (1 standard drink = 0.6 oz pur e alcohol) Ocass PHQ-2 Answer Date Recorded PHQ-2 Score 3 07/10/2020 Comments No Sex and Gender Information Value Date Recorded Sex Assigned at Not on file Legal Sex Female 4:21 AM STAFF VETERINARIAN Gender Identity Not on file Sexual Orientation [...] CDT US Transvaginal Non OB Order #: [id number] Study Notes Dana Arguelles on 03/26/2021 1:02 PM Gynecological Ultrasound Report Pelvic U/S - Transvaginal [facility] Referring Provider: Dr. Subhash Ferrari Pasteurizing Supervisor: Dana Arguelles RDMS Indication: Bleeding/Menses- Menorrhagia (heavy [...] documented as of this encounter Care Teams Division Human Resources Manager Relationship Specialty Start Date End Date [facility], [facility] Women [facility] 65[address] [facility] 100 [place] [address] PCP - General 09/03/17 [place] [address] [place] [address] Assigned OBGYN Provider 12/30/2011/02 Christina Woodard APRN PIER WORKER [address] [facility] 100 [place] [address] Assigned OBGYN Provider 11/03/21 documented as of this encounter
--- OUTSIDE RECORDS SUMMARY | 2024-12-24 13:34 | XMS_ITS | Encounter Summary ---
Author Organization [place] Address [facility] [place] [address] Care Team Providers Care Supervisor Electronic Testing Name Role Phone [facility] Primary Care Provider Subhash Ferrari MD Unavailable [phone] Christina Woodard APRN [employer] Unavailable [phone] Reason for Visit * Reason Onset Date Comments MyChart Communication 03/10/2021 Encounter Details Date Type Department Care Team (Latest Contact Info) Description 03/10/2021 MyC Medical Advice M [address] [address] [place] [address] [place] [address] MyChart Communication Social History Tobacco [...] on file Legal Sex Female 4:21 AM RESERVOIR CARETAKER Gender Identity Not on file Sexual Orientation Not on file documented as of this encounter Plan of Treatment Not on file documented as of this encounter Visit Diagnoses Not on filedocumented in this encounter Additional Health Concerns Assessment Noted Time PHQ-9 Depression Total Score: 16 020 7:59 AM CDT documented as of this encounter Care Teams Supervisor Electronic Testing Relationship Specialty Start Date End Date Clinic, [facility] Women [facility] [address] [facility] 100 [place] [address] PCP - General 09/03/17 [place] [address] [place] [address] Assigned OBGYN Provider 12/30/2011/02 Christina Woodard APRN BRAKE ASSEMBLER [address] [facility] 100 [place] [address] Assigned OBGYN Provider 11/03/21 documented as of this encounter
--- OUTSIDE RECORDS SUMMARY | 2024-12-24 13:34 | XMS_ITS | Encounter Summary ---
Author Organization [place] Address [facility] [place] [address] Care Team Providers Care Supervisor Frame Sample And Pattern Name Role Phone [facility] Primary Care Provider Subhash Ferrari MD Unavailable [phone] Subhash Ferrari MD Unavailable [phone] Sonja Hall APRN SOCIAL SCIENCES DEPARTMENT CHAIR Unavailable Christina Woodard APRN SOCIAL SCIENCES DEPARTMENT CHAIR Unavailable [phone] Encounter Details Date Type Department Care Team (Late st Contact Info) Description 07/20/2020 [facility] [address] [address] Lindsay Klein, ABEL Social History [...] on file Legal Sex Female 4:21 AM NURSE STAFF Gender Identity Not on file Sexual Orientation [...] as of this encounter Care Teams Supervisor Frame Sample And Pattern Relationship Specialty Start Date End Date Clinic, [facility] Women [place] [address] [place] [phone] PCP - General 09/03/17 [place] [address] [place] [address] Assigned OBGYN Provider 09/07/20 1 [place] [address] [place] [address] Assigned OBGYN Provider 12/30/2011/02 Sonja Hall APRN SOCIAL SCIENCES DEPARTMENT CHAIR [address] [place] [address] Assigned OBGYN Provider 12/23/20 Christina Woodard APRN SOCIAL SCIENCES DEPARTMENT CHAIR [address] [place] [address] Assigned OBGYN Provider 11/03/21 documented as of this encounter
--- OUTSIDE RECORDS SUMMARY | 2024-12-24 13:34 | XMS_ITS | Clinical Summary ---
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 Name Role Phone Khadar Yañez Unavailable [phone] Pcp, No Primary Care Provider Unavailabl e [...] Department Care Team Description 12/22/2024 3:47 PM RAILROAD DESIGN CONSULTANT - 12/22/2024 11:59 PM RAILROAD DESIGN CONSULTANT Hospital Encounter [facility] [place] [address] [place] [address] Robert Light MD Lonetti, Jennifer D, PT BPPV (benign paroxysmal positional vertigo), left 12/22/2024 Travel 12/19/2024 1:20 PM RAILROAD DESIGN CONSULTANT [place] [facility] [address] [place], [place] [phone] Robert Light MD Dizziness; Immunization/Injec tion 12/19/2024 Travel 12/17/2024 Online Questionnaire [facility] E-Visits [address] [place] [address] Tay Andre NP 12/17/2024 Nurse Triage [facility] Centralized Nurse Triage None Vertigo 12/01/2024 8:45 AM RAILROAD DESIGN CONSULTANT Office [place] [facility] [address] [place] [address] Martha Cohen PA Physical (fasting) 12/01/2024 Travel [...] on file Legal Sex Female 8:06 AM RAILROAD DESIGN CONSULTANT Gender Identity Not on file Sexual [...] al Livin g 8 9 [address] Delivery Location:[facility] Comments:IOL for CHTN; prlonged cervical ripening (>60hrs), VAVD for maternal exhaustion/prlonged 2nd stage; retained placenta with manual extraction; followed by AM, del by EC Last Filed Vital Signs Vital Sign Reading Time Taken Comments Blood Pressure 144/90 12/19/2024 1:20 PM RAILROAD DESIGN CONSULTANT Pulse 95 12/19/2024 1:20 PM RAILROAD DESIGN CONSULTANT Temperature 36.9 C (98.4 F) 12/19/2024 1:20 PM RAILROAD DESIGN CONSULTANT Respiratory Rate 16 01/30/2024 9:29 AM CDT Oxygen Saturation 99% 12/19/2024 1:20 PM RAILROAD DESIGN CONSULTANT Inhaled Oxygen Concentration - - Weight 110.7 kg (244 lb) 12/19/2024 1:20 PM RAILROAD DESIGN CONSULTANT Height 170 cm (5' 6.93) 12/19/2024 1:20 PM RAILROAD DESIGN CONSULTANT Body Mass Index 38.3 12/19/2024 1:20 PM RAILROAD DESIGN CONSULTANT Plan of Treatment Upcoming Encounters Date Type Department Care Team (Late st Contact Info) Description 12/30/2024 1:45 PM RAILROAD DESIGN CONSULTANT Appointment [facility] [place] [address] [phone] [place] [address] [facility] [address] [place], [place] [phone] Health Maintenance Due Date Last Done Comments [...] IRON BINDING CAP Routine 12/01/2024 9:33 AM RAILROAD DESIGN CONSULTANT Low ferritin FERRITIN Routine 12/01/2024 9:33 AM RAILROAD DESIGN CONSULTANT Low ferritin CBC WITH AUTO DIFFERENTIAL Routine 12/01/2024 9:33 AM RAILROAD DESIGN CONSULTANT Low ferritin LIPID PANEL W REFLEX MEASURED LDL Routine 12/01/2024 9:33 AM RAILROAD DESIGN CONSULTANT Screening for hyperlipidemia HEMOGLOBIN A1C Routine 12/01/2024 9:33 AM RAILROAD DESIGN CONSULTANT Diabetes mellitus screening GLUCOSE, FASTING Routine 12/01/2024 9:33 AM RAILROAD DESIGN CONSULTANT Diabetes mellitus screening from Last 3 Months Results * (ABNORMAL) HEMOGLOBIN A1C (12/01/2024 9:33 AM RAILROAD DESIGN CONSULTANT) HEMOGLOBIN A1C 5.9(H) <5.7 % of total [...] BLOOD SPECIMEN / Unknown 12/01/2024 9:33 AM RAILROAD DESIGN CONSULTANT 12/01/2024 9:33 AM RAILROAD DESIGN CONSULTANT Martha LINK CHEMISTRY Final Result [facility] [employer] [facility] [address] [place] [address], [place] [phone] [facility] [address] [facility] [place] [address] * (ABNORMAL) LIPID PANEL W REFLEX MEASURED LDL (12/01/2024 9:33 AM RAILROAD DESIGN CONSULTANT) CHOLESTEROL, TOTAL 168 <200 mg/dL [facility] [...] Friedewald equation in the estimation of LDL-C. Chnace SS et al. YANELIS. 2013;310(19): 4430-9857 (http://education.WyzeTalk.Railroad Empire/faq/BKP219) CHOL/HDLC RATIO 3.7 <5.0 (calc) [facility] [place] NON HDL CHOLESTEROL 123 <130 mg/dL (calc) [facility] [place] Comment: For patients with diabetes plus 1 major ASCVD risk factor, treating to a non-HDL-C goal of <100 mg/dL (LDL-C of <70 mg/dL) is considered a therapeutic option. Blood BLOOD SPECIMEN / Unknown 12/01/2024 9:33 AM RAILROAD DESIGN CONSULTANT 12/01/2024 9:33 AM RAILROAD DESIGN CONSULTANT Martha LNIK CHEMISTRY Final Result [facility] [facility] [address] [place] [address], [facility] [address] [place] [address] * (ABNORMAL) IRON PLUS IRON BINDING CAP (12/01/2024 9:33 AM RAILROAD DESIGN CONSULTANT) [facility] IRON, TOTAL 40 40 - 190 mcg/dL [facility] [place] IRON BINDING CAPACITY 374 250 - 450 mcg/dL (calc) [facility] % SATURATION 11(L) 16 - 45 % (calc) [facility] Blood BLOOD SPECIMEN / Unknown 12/01/2024 9:33 AM RAILROAD DESIGN CONSULTANT 12/01/2024 9:33 AM RAILROAD DESIGN CONSULTANT us Martha LINK CHEMISTRY Final Result Performing Organization Address City/[facility]/ZIP Co de Phone Number [facility] [address] [phone], [facility] [address] [place] [address] * (ABNORMAL) GLUCOSE, FASTING (12/01/2024 9:33 AM RAILROAD DESIGN CONSULTANT) [facility] GLUCOSE 101(H) 65 - 99 mg/dL [facility] Comment: Fasting reference interval For someone without known diabetes, a glucose value between 100 and 125 mg/dL is consistent with prediabetes and should be confirmed with a follow-up test. Blood BLOOD SPECIMEN / Unknown 12/01/2024 9:33 AM RAILROAD DESIGN CONSULTANT 12/01/2024 9:33 AM RAILROAD DESIGN CONSULTANT us Martha LINK CHEMISTRY Final Result [facility] [facility] [address] [address], [facility] [address] [place] [address] * CBC AND DIFFERENTIAL (12/01/2024 9:33 AM RAILROAD DESIGN CONSULTANT) [facility] WHITE BLOOD CELL COUNT 8.9 3.8 [...] BLOOD SPECIMEN / Unknown 12/01/2024 9:33 AM RAILROAD DESIGN CONSULTANT 12/01/2024 9:33 AM RAILROAD DESIGN CONSULTANT Martha LINK HEMATOLOGY Final Result [facility] [employer] [facility] [address] [place] [address], [place] [phone] [facility] [address] [place] [address] * FERRITIN (12/01/2024 9:33 AM RAILROAD DESIGN CONSULTANT) FERRITIN 29 16 - 232 ng/mL 24h00 [facility] [place] Blood BLOOD SPECIMEN / Unknown 12/01/2024 9:33 AM RAILROAD DESIGN CONSULTANT 12/01/2024 9:33 AM RAILROAD DESIGN CONSULTANT Martha LINK CHEMISTRY Final Result Performing Organization Address [facility] Co de Phone Number [employer] [facility] [address] [place] [address], [facility] [address] [place] [place] [address] from Last 3 Months Insurance [facility] Care Teams Six Pack Loader Operator Relationship Specialty Start Date End Date Pcp, No . PCP - General 12/21/24 Khadar Yañez [employer]BS [address] [place] [address] Consulting Physician Cardiovascular Disease 08/14/15
[2024-12-24 14:04] LABS: Chloride* 107 mmol/L (96-114)
[2024-12-24 14:05] LABS: Basophils Absolute Auto 0.01 K/uL (0.00-0.30); Basophils Percent Auto 0.1 % (0.0-3.0); Eosinophils Absolute Auto 0.07 K/uL (0.00-0.50); Eosinophils Percent Auto 0.8 % (0.0-7.0); Hemoglobin* 12.7 gm/dL (12.0-16.0); Immature Granulocytes Abs Auto 0.01 K/uL (0.00-0.30); Immature Granulocytes Pct Auto 0.1 %; Lymphocytes Percent Auto 12.9 % (20-44); Mean Corpuscular HGB Conc 33 gm/dL (32-36); Mean Corpuscular Hemoglobin 28 pg (26-34); Mean Corpuscular Volume 82 fL (80-100); Neutrophils Percent Auto 81.1 % (42.0-72.0); Platelet Count* 271 K/uL (140-440); Potassium* 3.8 mmol/L (3.6-5.1); RDW Coefficient of Variation % 14.4 % (11.5-15.5); Red Blood Count 4.62 m/uL (4.00-5.20); Sodium* 138 mmol/L (135-149); White Blood Count* 9.04 K/uL (4.50-11.00)
[2024-12-24 14:07] LABS: Anion Gap 12 mEq/L (7-15); Carbon Dioxide* 19 mmol/L (20-32); Creatinine* 0.7 mg/dL (0.5-1.5); Est. Creatinine Clearance* 98.01; Estimated Glomerular Filt Rate 111 ml/min
[2024-12-24 14:08] LABS: Blood Urea Nitrogen* 12 mg/dL (5-24); Calcium* 9.4 mg/dL (8.4-10.6); Glucose* 108 mg/dL (60-115)
[2024-12-24 14:23] LABS: PCR FLU A Negative PCR FLU A (Negative); PCR FLU B Negative PCR FLU B (Negative); PCR RSV Negative PCR RSV (Negative); SARS PCR* Negative SARS-CoV-2 (Negative)
[2024-12-24 14:34] VITALS: BP 134/75; RESP 18
[2024-12-24 14:38] LABS: Slide Review Reflex No
== END 2024-12-24 15:22 | disposition home or self-care (01) ==
PROVIDERS: Emergency Provider Family Medicine; PCP Physician Assistant Medical
DX: R42 Dizziness and giddiness (principal)
CPT/HCPCS: 36415; 70450; 80048; 85025; 87631; 96361; 96374; 96375; 99284; 99285; J2060; J7030